=== PATIENT | female | born 1965 | race Caucasian/White ===

== ENCOUNTER 2017-10-12 09:49 | Observation (INO) | payer OTHER, SELFPAY ==
[2017-10-12] VITALS (9 sets, daily range): BP systolic 152–172; BP diastolic 81–96; PULSE 100–116; RESP 18–20; TEMP 36.6–38.6; O2SAT 93–97; BMI 25.0
--- NOTE | 2017-10-12 | FLU_PTH ---
PATIENT: CHATO NICHOLSON LOC: MS2 U#:[id number] AGE/SX: 52/F ROOM: [facility] [place]10/12/[address]: Dr. Milind Pringle DO : 1965 BED: 1 DIS: 10/13/2017 SPEC #: [id number] RECD: 10/13/17 08:48 STATUS: FELA LILO #: [id number] KOBI: 10/12/17 00:[address]: Milind Pringle DEPT: CYTOLOGY RECD BY: Jacob Ma ENTERED: 10/13/17 08:48 SP TYPE: Fluid OTHR DR: MD Dr. Sherrie Cortes MD Tissues: THORACIC FLUID Procedures: Pap Stain (control) Special Stain Group II Surgery Specimen Level IV Cell Block Cytospin Fluid HEADER OPERATION: Ultrasound-guided thoracentesis PRE-OP DIAGNOSIS: Right pleural effusion TISSUE SUBMITTED: Thoracentesis fluid for cytology DIAGNOSIS CYTOLOGY Thoracentesis fluid for cytology (cytospin and cell block): Malignant cells present derived from non-small cell carcinoma, favor adenocarcinoma. SJ:rg 10/14/17 COMMENT Immunohistochemistry ([id number]) supports the above diagnosis bur does not elucidate a definitive primary. This case was discussed with Dr. Leon Bell on 10/14/[address] Hilliard and on 10/15/[address] Sher. Case has been reviewed in consultation with who concurs with the above diagnosis. IDC:AM CYTOLOGY STUDY Slides are reviewed. CYTOLOGY GROSS Received is 100 ml of yellow cloudy fluid labeled with the patient's name and and designated per the requisition as thoracentesis. Submitted for cytology preparation including cell block. / 10/13/17 TC:0 CPT: 81877, 14102 ADDENDUM ADDENDUM ADDENDUM ADDENDUM 10/30/2017 13:41 ADDENDUM 10/30/2017 13:41 ADDENDUM 10/30/2017 13:41 ADDENDUM 10/30/2017 13:41 ADDENDUM 10/30/2017 13:41 This case was discussed with Dr. Feliz by Dr. Sher on 10/29/17. An upper gastrointestinal tract or pancreatic primary cannot be excluded.
--- NOTE | 2017-10-12 | IMM_PTH ---
PATIENT: CHATO NICHOLSON LOC: MS2 U#:[id number] AGE/SX: 52/F ROOM: [facility] RE10/12/[address]: Dr. Milind Pringle DO : 1965 BED: 1 DIS: 10/13/2017 SPEC #: [id number] RECD: 10/14/17 10:41 STATUS: FELA REBakari #: [id number] KOBI: 10/12/17 00:[address]: Milind Pringle DEPT: IMMUNOHISTOCHEMISTRY RECD BY: April Salgado ENTERED: 10/14/17 10:44 SP TYPE: IMMUNO OTHR DR: MD Dr. Sherrie Cortes MD Tissues: THORACIC FLUID Procedures: RCC (add) NAPSIN A (add) CK20 (add) CK5-6 (add) CK7 (add) CK8 (add) RODRÍGUEZ-2 (add) E-CAD (add) HEP PAR (add) HER2 ALIVIA (add) MACRO (add) MAMM (add) NJ (add) TTF1 (add) GATA3 (add) P40 (add) ER (initial) PHYSICIAN & [address] [address] SPECIMEN INFORMATION: Tissue Source: Thoracentesis fluid for cytology Clinical Info: Right pleural effusion Specimen Number: [id number] CPT code: 33951, 36747 x16 METHODOLOGY: Deparaffinized sections of prefer/formalin-fixed tissue or PAP/DQ stained slides are incubated with monoclonal/polyclonal antibodies/oligonucleotide probes. Localization is made via biotin free immunoperoxidase method. Appropriate controls are performed and reacted as expected. Results on target cell population are indicated in the following table: RESULTS: ANTIBODY / CLONE RESULT ER (6F11) negative NJ (1E2) negative Her-2neu (CB11) negative E-Cad (ECH-6) positive Mammaglobin (31A5) negative GATA3 (L50-823) negative CK7 (OV-TL12/30) positive CK8 (67klfkZ38) positive CK20 (KS20.8) negative TTF-1 (8G7G3/1) negative Napsin A (Rabbit Polyclonal) negative HepPar (OCh1E5) negative RCC (PN-15) negative Macro (HAM-56) negative CK5-6 (D5 & 1684) negative P40 (BC28) negative RODRÍGUEZ-2 (SP21) positive, dim These tests were developed and their performance characteristics determined by [facility]. They may not have been cleared or approved by the U.S. Food and Drug Administration. The FDA has determined that such clearance or approval is not necessary. INTERPRETATION: Thoracentesis fluid for cytology: Metastatic non-small cell carcinoma. AM:tanya 10/15/17 Comment: The IHC profile does not elucidate a definitive primary. ADDENDUM ADDENDUM ADDENDUM ADDENDUM 10/30/2017 13:41 ADDENDUM 10/30/2017 13:41 ADDENDUM 10/30/2017 13:41 ADDENDUM 10/30/2017 13:41 ADDENDUM 10/30/2017 13:41 This case was discussed with Dr. Feliz by Dr. Sher on 10/29/17. An upper gastrointestinal tract or pancreatic primary cannot be excluded.
--- NOTE | 2017-10-12 11:15 | US_ITS ---
PROCEDURE: ULTRASOUND GUIDED THORACENTESIS. DATE: October 12, 2017.. INDICATION: Female, 52 years old. Right pleural effusion. PHYSICIAN: Chucho Cramer M.D. PROCEDURE: The risks, benefits, and alternatives to the procedure were explained to the patient. The specific risks of bleeding, infection, and pneumothorax requiring chest tube insertion were discussed and accepted. Written informed consent was obtained. Ultrasonographic evaluation of the right lower pleural space was carried out. An adequate pocket was identified. The patient was placed in the sitting, upright position. The overlying skin was prepped and draped in sterile fashion. 1% lidocaine was administered subcutaneously for local anesthesia. Under ultrasound guidance, a 6 Macanese thoracentesis needle/catheter system was advanced into the right posterior lower pleural fluid collection. Approximately 1160 mL of roseanne-colored fluid was drained. The catheter was removed, and a sterile dressing was applied. A specimen was collected and sent to the laboratory for analysis, as requested by the referring clinician. The patient tolerated the procedure well. A chest x-ray was ordered. US/Thoracentesis W US IMPRESSION: Ultrasound-guided right thoracentesis. Electronically Signed: Chucho Cramer MD at 15:09 EST Tel [phone], Service support ,
--- NOTE | 2017-10-12 11:19 | PCM.HP.STD ---
Problem List (1) Pleural effusion Status: Acute (2) Hypertension Status: Chronic History of Present Illness Date of Admission: 10/12/17 Chief Complaint: shortness of breath. The patient is a 52 year old F who for the past month has been losing some shortness of breath. Patient said about a month ago she fell into plantar skin midsternal and also under her left breast. Subsequently, thereafter, patient has had some dyspnea on exertion. Patient states that she felt like almost like a muscle pull. Patient has been coughing but it has been nonproductive. And patient states that her breathing is worse when she lays on her right side and better when she lays on her left. Patient has difficulty lying flat as well as a cause her to be short of breath. The patient presented to [place] emergency room with these complaints. Patient had an elevated d-dimer and subsequently underwent a CT injury of the chest that did not show any pulmonary embolism but did show a large right pleural effusion. Patient is never been diagnosed with a pleural effusion before. So the feeling of the emergency room doctor that patient would be better assessed at a facility where she could have a thoracentesis. This patient was sent to [facility] per the patient request. [] Past Medical History Past Medical History (Chronic Problems): Chronic Problems Hypertension (Chronic) Allergies codeine Adverse Reaction (Verified 10/12/17 10:21) Itching Home Medications: Ambulatory Orders Medication Instructions Recorded Alprazolam [Xanax] 1 mg PO QHS PRN 10/12/17 Losartan Potassium 100 mg PO DAILY 10/12/17 Smoking Status: Current every day smoker - *Family History Paternal History Items: Unknown Maternal History Items: Cancer, Heart Disease Review of Systems Constitutional: Denies: Chills, Fever, Weight Change Eyes: Reports: - - Glasses. Denies: Blurred vision, Double vision HEENT: Denies: Head Aches, Sinus Congestion, Sinus Drainage Cardiovascular: Denies: Chest Pain, Palpitations Respiratory: Reports: Cough, Shortness of Breath, Shortness of breath upon exertion. Denies: Sputum production Gastrointestinal: Denies: Abdominal Pain, Nausea, Vomiting Genitourinary: Denies: Dysuria Musculoskeletal: Denies: Joint Pain, Joint Tenderness Skin: Denies: Rash, Wounds Neurological: Denies: Numbness, Tingling, Focal weakness Psychiatric: Denies: Anxiety, Depression, Homicidal Ideations, Suicidal Ideations Endocrine: Denies: Change in Body Habitus, Heat/ Cold Intolerance Hematologic/ Lymphatic: Denies: Easy Bruising, Easy Bleeding, Hx of blood clot VTE Information - Inpt Only VTE Present on Admission: No VTE Mechan Device Prophylaxis: SCD's Patient Problems: Active and Suspected Problems Pleural effusion (Acute) - Physical Exam General: Alert, Cooperative, No apparent distress, Well developed, Well nourished, - - No respiratory distress. No conversational dyspnea. HEENT: Atraumatic, Normocephalic Neck: No Nodes, Thyroid Normal Size and Texture Lungs: Clear to auscultation, No rhonchi, No wheeze, Diminished, - - Right lower lobe. Cardiovascular: Regular rate, Regular Rhythm, Normal S1, Normal S2, No murmurs Abdomen: Bowel Sounds Present, Soft, Non Tender, Non-Distended, No Hepato-splenomegaly Extremities: No edema, No Calf Tenderness Skin: No rashes, No breakdown Neurological: Neuro grossly intact, Sensory exam intact to light touch and pain Psych/Mental Status: Normal Affect, Appropriate Vital Signs Temp Pulse Resp BP Pulse Ox 37.6 C H 100 20 H 159/86 H 97 10/12/17 10:01 10/12/17 10:01 10/12/17 10:35 10/12/17 10:10/12/17 10:01 Oxygen Flow Rate 3 Oxygen Delivery Method Nasal Cannula Weight: 59.959 kg Body Mass Index (BMI) 25.0 CT chest personally reviewed and showed a large right lower lobe effusion. EKG reviewed and showed normal sinus rhythm Lab work from outside hospital was incomplete as not all labs are sent here. Patient did have an elevated d-dimer of 1.8. A BNP of 447. Assessment/Plan Active and Suspected Problems Pleural effusion (Acute) 1. Right-sided pleural effusion Unclear what this is. Possibilities, as was explained to the patient, could be hemothorax, transudative effusion due to heart failure, exudative effusion due to pneumonia or malignancy. Plan is for a thoracentesis with cell count and differential, cytology, culture, LDH, protein and glucose. Concomitantly patient will have a serum protein and serum LDH for comparison. 2. DVT prophylaxis: Patient be on SCDs in light of the impending thoracentesis. Code Visit Inpatient E&M: 15747 Init Hosp L3
--- NOTE | 2017-10-12 11:26 | HP.PCM_ITS ---
Problem List (1) Pleural effusion Status: Acute (2) Hypertension Status: Chronic History of Present Illness Date of Admission: 10/12/17 Chief Complaint: shortness of breath. The patient is a 52 year old F who for the past month has been losing some shortness of breath. Patient said about a month ago she fell into plantar skin midsternal and also under her left breast. Subsequently, thereafter, patient has had some dyspnea on exertion. Patient states that she felt like almost like a muscle pull. Patient has been coughing but it has been nonproductive. And patient states that her breathing is worse when she lays on her right side and better when she lays on her left. Patient has difficulty lying flat as well as a cause her to be short of breath. The patient presented to [place] emergency room with these complaints. Patient had an elevated d-dimer and subsequently underwent a CT injury of the chest that did not show any pulmonary embolism but did show a large right pleural effusion. Patient is never been diagnosed with a pleural effusion before. So the feeling of the emergency room doctor that patient would be better assessed at a facility where she could have a thoracentesis. This patient was sent to [facility] per the patient request. [] Past Medical History Past Medical History (Chronic Problems): Chronic Problems Hypertension (Chronic) Allergies codeine Adverse Reaction (Verified 10/12/17 10:21) Itching Home Medications: Ambulatory Orders Medication Instructions Recorded Alprazolam [Xanax] 1 mg PO QHS PRN 10/12/17 Losartan Potassium 100 mg PO DAILY 10/12/17 Smoking Status: Current every day smoker - *Family History Paternal History Items: Unknown Maternal History Items: Cancer, Heart Disease Review of Systems Constitutional: Denies: Chills, Fever, Weight Change Eyes: Reports: - - Glasses. Denies: Blurred vision, Double vision HEENT: Denies: Head Aches, Sinus Congestion, Sinus Drainage Cardiovascular: Denies: Chest Pain, Palpitations Respiratory: Reports: Cough, Shortness of Breath, Shortness of breath upon exertion. Denies: Sputum production Gastrointestinal: Denies: Abdominal Pain, Nausea, Vomiting Genitourinary: Denies: Dysuria Musculoskeletal: Denies: Joint Pain, Joint Tenderness Skin: Denies: Rash, Wounds Neurological: Denies: Numbness, Tingling, Focal weakness Psychiatric: Denies: Anxiety, Depression, Homicidal Ideations, Suicidal Ideations Endocrine: Denies: Change in Body Habitus, Heat/ Cold Intolerance Hematologic/ Lymphatic: Denies: Easy Bruising, Easy Bleeding, Hx of blood clot VTE Information - Inpt Only VTE Present on Admission: No VTE Mechan Device Prophylaxis: SCD's Patient Problems: Active and Suspected Problems Pleural effusion (Acute) - Physical Exam General: Alert, Cooperative, No apparent distress, Well developed, Well nourished, - - No respiratory distress. No conversational dyspnea. HEENT: Atraumatic, Normocephalic Neck: No Nodes, Thyroid Normal Size and Texture Lungs: Clear to auscultation, No rhonchi, No wheeze, Diminished, - - Right lower lobe. Cardiovascular: Regular rate, Regular Rhythm, Normal S1, Normal S2, No murmurs Abdomen: Bowel Sounds Present, Soft, Non Tender, Non-Distended, No Hepato- splenomegaly Extremities: No edema, No Calf Tenderness Skin: No rashes, No breakdown Neurological: Neuro grossly intact, Sensory exam intact to light touch and pain Psych/Mental Status: Normal Affect, Appropriate Vital Signs Temp Pulse Resp BP Pulse Ox 37.6 C H 100 20 H 159/86 H 97 10/12/17 10:01 10/12/17 10:01 10/12/17 10:35 10/12/17 10:10/12/17 10:01 Oxygen Flow Rate 3 Oxygen Delivery Method Nasal Cannula Weight: 59.959 kg Body Mass Index (BMI) 25.0 CT chest personally reviewed and showed a large right lower lobe effusion. EKG reviewed and showed normal sinus rhythm Lab work from outside hospital was incomplete as not all labs are sent here. Patient did have an elevated d-dimer of 1.8. A BNP of 447. Assessment/Plan Active and Suspected Problems Pleural effusion (Acute) 1. Right-sided pleural effusion Unclear what this is. Possibilities, as was explained to the patient, could be hemothorax, transudative effusion due to heart failure, exudative effusion due to pneumonia or malignancy. Plan is for a thoracentesis with cell count and differential, cytology, culture , LDH, protein and glucose. Concomitantly patient will have a serum protein and serum LDH for comparison. 2. DVT prophylaxis: Patient be on SCDs in light of the impending thoracentesis. Code Visit Inpatient E&M: 24669 Init Hosp L3
[2017-10-12 11:50] LABS: ALB/GLOB Ratio 0.9 RATIO (0.9-2.4); Globulin 3.6 g/dL (2.2-4.2); LDH 157 U/L (84-246); Protein, Total 6.8 g/dL (6.4-8.2)
--- NOTE | 2017-10-12 14:36 | RAD_ITS ---
STUDY: X-RAY CHEST REASON FOR EXAM: Female, 52 years old. Status post right thoracentesis. TECHNIQUE: Single PA inspiratory view of the chest. COMPARISON: None. FINDINGS: The patient is status post right thoracentesis. Minimal persistent lower parenchymal changes at the right lung base. No evidence of pneumothorax. RAD/Chest 1 View IMPRESSION: No evidence of pneumothorax on the immediate post right thoracentesis examination. Electronically Signed: Chucho Cramer MD at 14:56 EST Tel [phone], Service support ,
--- NOTE | 2017-10-12 14:37 | RAD_ITS ---
STUDY: X-RAY CHEST REASON FOR EXAM: Female, 52 years old. Status post right thoracentesis. TECHNIQUE: Single PA expiratory view of the chest. COMPARISON: None. FINDINGS: The patient is status post right thoracentesis. There is no evidence of pneumothorax. Minimal residual blunting of the right cardiac phrenic angle with underlying atelectasis. RAD/Chest 1 View IMPRESSION: Status post right thoracentesis. There is no evidence of pneumothorax. Minimal degree of pleural parenchymal changes at the right lung base. Electronically Signed: Chucho Cramer MD at 14:56 EST Tel [phone], Service support ,
[2017-10-12 15:05] LABS: Cytology, Body Fluid / CSF SEE PATHOLOGY REPORT
[2017-10-12] MEDS: oxyCODONE 5 MG Tablet PO (15:09)
[2017-10-12] MEDS: Acetaminophen 325 MG Tablet 650 MG PO ×2 (15:10→21:11)
[2017-10-12 15:31] LABS: Body Fluid Mononuclear WBC # 0.348 10^3/uL; Body Fluid Mononuclear WBC % 37.8 %; Body Fluid Polynuclear WBC # 0.572 10^3/uL; Body Fluid Polynuclear WBC % 62.2 %; Body Fluid Total Cells Counted 1.012 10^3/ul (0.000-0.000)
--- NOTE | 2017-10-12 15:36 | NURSING ---
PTS BP 172/96. PT STATES DID NOT TAKE HER ORDERED DOSE OF LOSARTAN 100MG THIS AM. STATES SHE DOES NOT TAKE MEDICATION REGULARLY. STATES WHEN SHE DOES TAKE IT, ONLY TAKES 50MG BECAUSE SHE DOES NOT LIKE HOW IT MAKES HER FEEL. DR OSCAR NOTIFIED OF SAME & DOSE CHANGED.
[2017-10-12 16:00] LABS: LDH,Body Fluid 241 Units/l (Not Establ.); Protein, Body Fluid 4.7 g/dL (Not Establ.)
--- NOTE | 2017-10-12 16:05 | CASEMGMT ---
See RN CM Assessment. DC Plan: home on discharge. Pt works, does not forsee any difficulty with f/u or having prescriptions filled. -pt is on 3L NC in hospital, no home O2. Anticipate will wean O2 prior to dc. May need Home Oxygen testing. - No dc needs identified. Daquan SAENZN RN ACM
[2017-10-12 16:56] LABS: Appearance/Body Fluid SL CLDY; Auto B Fluid Analyzer BKGD Ct COUNTS W/IN LIMITS (W/IN LIMITS); Color/Body Fluid YELLOW; Source- Body Fluid THORACENTESIS
[2017-10-12] MEDS: Losartan Potassium 50 MG Tablet PO ×2 (16:56)
[2017-10-12 17:25] LABS: Lymphocytes 16 %; Monocytes 24 %; Neutrophil (Segs) 14 %
[2017-10-12 17:26] LABS: Body Fluid QC Type(s) BF1Q
[2017-10-12 17:27] LABS: Other Cell Type/BF 46 %
[2017-10-12 23:22] LABS: Hematocrit 40.8 % (37-47); Hemoglobin 13.3 g/dl (12.0-15.0); Mean Corp Hgb Conc 32.6 g/gl (32-36); Mean Corpuscular Hgb 33.1 pg (27.0-32.0); Mean Corpuscular Volume 101.5 fL (81-99); Mean Platelet Vol. 9.5 fl (6.2-12.0); Platelet Count 167 K/mm3 (150-450); RBC Distribution Width CV 12.4 % (11.6-14.6); RBC Distribution Width SD 46.1 fl (35.1-43.9); Red Blood Count 4.02 M/mm3 (4.2-5.4); White Blood Count 5.8 K/mm3 (4.4-11.0)
[2017-10-12 23:23] LABS: Scan Indicated on CBC? Y/N NO
[2017-10-12 23:38] LABS: Anion Gap 7 (5-15); BUN 13 mg/dL (7-18); Calcium,Total 8.4 mg/dL (8.5-10.1); Chloride 104 mmol/L (98-107); Creatinine, Serum 0.72 mg/dL (0.55-1.02); EST Glomerular Filtration Rate 89 mL/min (>60); Est Glom Filt Rate - Afr Amer 108 mL/min (>60); Glucose 106 mg/dL (70-110); Potassium 3.9 mmol/L (3.5-5.1); Sodium Level 136 mmol/L (136-145)
[2017-10-13] VITALS (8 sets, daily range): BP systolic 139–154; BP diastolic 70–89; PULSE 95–105; RESP 18; TEMP 36.8–38.8; O2SAT 93–94
[2017-10-13] MEDS: oxyCODONE 5 MG Tablet PO ×2 (02:59→15:26)
[2017-10-13] MEDS: Acetaminophen 325 MG Tablet 650 MG PO ×2 (03:51→15:26)
--- NOTE | 2017-10-13 08:24 | PCM.CONS.GEN ---
Problem List (1) Pleural effusion Status: Acute Comment: right sided (2) Tobacco abuse Status: Chronic (3) Hypertension Status: Chronic Qualifiers: Hypertension type: unspecified Qualified Code(s): I10 - Essential (primary) hypertension Reason for Consult Date of Consultation: 10/13/17 Reason for Consultation: exudative pleural effusion History of Present Illness: The patient is a 52 year old F with a past medical history of hypertension, right nephrectomy, and tobacco abuse who presented to [facility] as a direct admit from [facility] with complaints of worsening stabbing pain to her right chest, progressive shortness of breath, and nonproductive cough. Patient reports she had an upper respiratory infection with sinus congestion and cough about 5 weeks ago. She attributed this to a head cold and did not seek medical treatment. She had tried taking Francine-Howe with no improvement. She also had a fall when she tripped over a rug in her house about a month ago, and has had worsening respiratory symptoms since and has been quite sore. She attributed her soreness to the fall and from coughing. Patient reports she had a large midsternal and left breast ecchymotic area following the fall, which has improved. She typically lies flat in bed on her right side when she sleeps and has been unable to do this for the past couple of days. Her dyspnea and discomfort improves with lying on her left side. Over the last 2 days, her dyspnea became significantly worse so she presented to an outside ER. Chest x-ray showed right pulmonary infiltrate. Lab work was completed and revealed an elevated d-dimer. Several various labs and blood cultures were performed, however these results are unavailable. EKGs showed sinus tachycardia with possible left atrial abnormality, rate 117 bpm. CTA of the chest was obtained and did not show a pulmonary embolism, however revealed a large right pleural effusion. The patient was given p.o. azithromycin and IV ceftriaxone, as well as IV metoprolol and Toradol injection. Patient reports she is a fairly healthy and active person. She does have a [id number] history of smoking and continues to smoke about a half pack a day. She also routinely drinks alcohol, mainly beer approximately 3 nights a week, 2-3 beers at a time. She also drinks more on the weekends. She does have a history of cannabis abuse, however quit using over 10 years ago. Patient had been receiving regular mammograms and Pap smears up until a few years ago when she moved from [place]. She has never had a colonoscopy or had a Hemoccult stool and notes that she has been resistant to having one done, even though urged by her PCP. She denies any change in bowel habits. Patient has no known lung disease and has never been on any inhalers are required a visit with a toll collector. She has never had any pulmonary function testing. Patient notes she was told she likely has sleep apnea, she does snore but denies any history of apnea. The patient has worked mainly factory jobs in shipping. She denies any history of exposure to tuberculosis, asbestos, or harmful chemicals. She denies any personal history of cancer. She denies any history of hemoptysis. She denies any recent significant weight loss. Her appetite has been good. She lives with her boyfriend. Patient was admitted to the medical surgical floor for further management. Initial lab work revealed no leukocytosis, normal hemoglobin with elevated MCV/MCH. Normal platelet count and coagulation studies. Chemistry was unremarkable. She underwent a thoracentesis on 10/12/17 with removal of approximately 1160 mL of roseanne colored fluid, which has been found to be exudative. Total body fluid cell count was elevated at 1.012. Glucose was elevated at 90. Cytology is pending. Patient has subjective improvement in her breathing and is able to take deeper breaths without pain. She still is sore in her chest when she coughs. She has not been bringing up any sputum. She denies any fevers or chills, however has had a T high of 101.4?F last evening. She is currently afebrile. The patient has been weaned off her 3 L of oxygen and is maintaining appropriate saturations on room air. She is ambulating in the room without difficulties, no dyspnea on exertion. Past Medical History Past Medical History (Chronic Problems): Chronic Problems Hypertension (Chronic) Tobacco abuse (Chronic) Allergies codeine Adverse Reaction (Verified 10/12/17 10:21) Itching Home Medications: Ambulatory Orders Medication Instructions Recorded Alprazolam [Xanax] 1 mg PO QHS PRN 10/12/17 Losartan Potassium 100 mg PO DAILY 10/12/17 Surgical History: arthroscopy, knee, - - tubal ligation, appendectomy, R nephrectomy in her 20's. Psychiatric History: No pertinent psych hx [employer] History: No pertinent [employer] history Lives: Spouse/ Significant Other Smoking Status: Current every day smoker Tobacco Use: Cigarettes, - - 16 [id number] Alcohol: Occasional - 2-3 beers 2-3 nights per week, weekends 3-6 beers/day Drugs: None - *Family History Paternal History Items: Unknown Maternal History Items: Cancer, Heart Disease Review of Systems Constitutional: Denies: Anorexia, Chills, Fever, Night Sweats, Malaise, Weakness, Weight Change, Fatigue Eyes: Denies: Vision Change HEENT: Denies: Difficulty Swallowing, Head Aches, Nasal Congestion, Post Nasal Drip, Sore Throat Cardiovascular: Reports: Orthopnea, - - sore ribs under bilat breasts when coughing. Denies: Chest Pain, Edema, Light Headedness, Palpitations, Paroxysmal Noc. Dyspnea, Syncope Respiratory: Reports: Cough - Nonproductive, Pleuritic Pain - improved. Denies: Hemoptysis, Shortness of Breath, Sputum production, Wheezing Gastrointestinal: Denies: Abdominal Pain, Diarrhea, Dyspepsia, Hematemesis, Hematochezia, Melena, Vomiting Genitourinary: Denies: Dysuria, Frequency, Retention Gynecological: Denies: Breast symptoms Musculoskeletal: Reports: - - rib pain to right lateral chest, anterior lower ribs. Denies: Back Pain Skin: Denies: Dryness, Pruritis Neurological: Denies: Balance problems, Change in Speech, Focal weakness, Numbness, Tingling, Tremor, Seizures Psychiatric: Denies: Anxiety, Depression Endocrine: Denies: Change in Body Habitus, Polydipsia, Polyuria Hematologic/ Lymphatic: Denies: Adenopathy, Anemia, Easy Bruising, Easy Bleeding, Hx of blood clot Patient Problems: Active and Suspected Problems Pleural effusion (Acute) right sided Subjective: Patient was seen and examined. She is sitting up in bed resting comfortably watching TV. - Physical Exam General: Alert, Oriented x3, Cooperative, No apparent distress, Well developed, Well nourished, - - No conversational dyspnea HEENT: Atraumatic, Normocephalic Oral: Moist Mucosa Neck: Supple, No JVD, Negative Carotid Bruits, No Nodes, Trachea Midline, Thyroid Normal Size and Texture Lungs: Clear to auscultation, - - Diminished posteriorly mid to lower lobes, more on the right. No appreciable rhonchi, wheezes, or rales. Cardiovascular: Regular Rhythm, Normal S1, Normal S2, No murmurs, No rub noted, No Gallop, Tachycardic Abdomen: Bowel Sounds Present, Soft, Non Tender, Non-Distended, No Hepato-splenomegaly Extremities: No clubbing, No cyanosis, No edema, Capillary Refill Less than 3 Seconds, No Calf Tenderness Skin: No rashes, No breakdown Musculoskeletal: No Tenderness to Palpation of Joints or Extremities, No Muscle Wasting Lymphatic: No Cervical, Supraclavicular, or Inguinal Adenopathy Neurological: Cranial nerves II-XII grossly intact, Neuro grossly intact, Motor Exam 5/5 strength throughout Psych/Mental Status: Alert and oriented to time, place, person, mood and affect Vital Signs Temp Pulse Resp BP Pulse Ox 98.2 F 95 18 139/77 H 94 10/13/17 07:50 10/13/17 07:50 10/13/17 07:50 10/13/17 07:50 10/13/17 07:50 Oxygen Flow Rate 1 Oxygen Delivery Method Room Air Weight: 132 lb 3 oz Body Mass Index (BMI) 25.0 Intake and Output for Last 24 Hours 10/11/17 10/12/17 10/13/17 23:59 23:59 23:59 Intake Total 480 / 480 400 / 400 Balance 480 / 480 400 / 400 Microbiology Past 72 Hours 10/12/17 14:30 Gram Stain - Preliminary Fluid - Thoracentesis Fluid Laboratory Tests Past 24 Hrs 10/12/17 10/12/17 10/12/17 11:28 11:28 14:30 WBC RBC Hgb Hct MCV MCH MCHC RDW RDW Differential Plt Count MPV PT 13.0 INR 1.0 Sodium Potassium Chloride Carbon Dioxide Anion Gap BUN Creatinine Estim Creat Clear Calc Est GFR (MDRD) Af Amer Est GFR (MDRD) Non-Af BUN/Creatinine Ratio Glucose Calcium Lactate Dehydrogenase 157 Total Protein 6.8 Globulin 3.6 Albumin/Globulin Ratio 0.9 Fluid Source THORACENTESIS Fluid Color YELLOW Fluid Appearance SL CLDY Fluid WBC 0.920 Fluid RBC 0.02555 Fluid Tot Cell Count 1.012 H Fld Polynuclear WBCs # 0.572 Fld Polynuclear WBCs % 62.2 Fluid Mononuclear WBCs 0.348 Fld Mononuclear WBCs % 37.8 Fluid Neutrophils 14 Fluid Lymphocytes 16 Fluid Monocytes 24 Fluid Other Cells 46 Fl Pathologist Comment May follow Fluid Glucose Fluid Total Protein Fluid LDH Fluid Comment 2 SEE COMMENT Miscellaneous Cytology 10/12/17 10/12/17 10/12/17 14:30 14:55 23:09 WBC 5.8 RBC 4.02 L Hgb 13.3 Hct 40.8 MCV 101.5 H MCH 33.1 H MCHC 32.6 RDW 12.4 RDW Differential 46.1 H Plt Count 167 MPV 9.5 PT INR Sodium Potassium Chloride Carbon Dioxide Anion Gap BUN Creatinine Estim Creat Clear Calc Est GFR (MDRD) Af Amer Est GFR (MDRD) Non-Af BUN/Creatinine Ratio Glucose Calcium Lactate Dehydrogenase Total Protein Globulin Albumin/Globulin Ratio Fluid Source Fluid Color Fluid Appearance Fluid WBC Fluid RBC Fluid Tot Cell Count Fld Polynuclear WBCs # Fld Polynuclear WBCs % Fluid Mononuclear WBCs Fld Mononuclear WBCs % Fluid Neutrophils Fluid Lymphocytes Fluid Monocytes Fluid Other Cells Fl Pathologist Comment Fluid Glucose 90 H Fluid Total Protein 4.7 Fluid LDH 241 Fluid Comment 2 Miscellaneous Cytology Pending 10/12/17 23:09 WBC RBC Hgb Hct MCV MCH MCHC RDW RDW Differential Plt Count MPV PT INR Sodium 136 Potassium 3.9 Chloride 104 Carbon Dioxide 25.0 Anion Gap 7 BUN 13 Creatinine 0.72 Estim Creat Clear Calc 67.40 Est GFR (MDRD) Af Amer 108 Est GFR (MDRD) Non-Af 89 BUN/Creatinine Ratio 18.0 Glucose 106 Calcium 8.4 L Lactate Dehydrogenase Total Protein Globulin Albumin/Globulin Ratio Fluid Source Fluid Color Fluid Appearance Fluid WBC Fluid RBC Fluid Tot Cell Count Fld Polynuclear WBCs # Fld Polynuclear WBCs % Fluid Mononuclear WBCs Fld Mononuclear WBCs % Fluid Neutrophils Fluid Lymphocytes Fluid Monocytes Fluid Other Cells Fl Pathologist Comment Fluid Glucose Fluid Total Protein Fluid LDH Fluid Comment 2 Miscellaneous Cytology Assessment/Plan Active and Suspected Problems Pleural effusion (Acute) right sided RECOMMENDATIONS 1. Wean oxygen supplementation to keep saturations greater than 90%. 2. Encourage incentive spirometer 3. Increase activity as tolerated 4. Await final fluid analysis from thoracentesis 5. Obtain sputum culture if cough becomes productive 6. Walking oximetry prior to discharge 7. Depending upon cytology, patient can follow up in the pulmonary clinic on discharge from hospital IMPRESSIONS 1. Large right pleural effusion Patient had a mechanical fall approximately 1 month ago with subsequent progressive shortness of breath and cough. Patient originally presented to [facility] and subsequently had a CT of the chest secondary to elevated d-dimer. Results were no evidence of PE but found a large right sided pleural effusion and compressive atelectasis in the right lung base. There was no significant mediastinal lymphadenopathy. She has no history of congestive heart failure or CAD. She has no history of cancer but has been a smoker for the past 35 years. Thoracentesis removed approximately 1100 mL of roseanne colored, exudative fluid on 10/12. Cytology is pending. Chest x-ray s/p thoracentesis showed minimal persistent lower parenchymal changes at the right lung base, no evidence of pneumothorax. Given her smoking history, fluid would be concerning for malignancy but will await pathology. If no results by this afternoon, will call the lab to determine etiology of extra cells (eosinophils vs malignancy). She did have a fever on arrival and T high of 101.4?F last evening. Patient did not present with a leukocytosis, however does note several weeks of chest congestion following URI, so a post-viral pneumonia is possible etiology. Can get sputum culture if cough becomes productive. Patient does not endorse any wheezing, aerosols not likely indicated at this time. Oxygen supplementation as needed to keep saturations greater than 90%. Encourage incentive spirometer and increase activity as tolerated. Patient can follow-up in the pulmonary clinic if indicated. 2. Tobacco abuse The patient currently only smokes about half pack a day. She has not had a cigarette in 4 days and does not feel she needs a nicotine patch. She is hopeful on smoking cessation as an outpatient as well, her daughter is going to assist her with this. May offer nicotine patch if she desires in the future. Encouraged smoking cessation and reviewed benefits, she verbalized understanding. 3. History of hypertension/insomnia/occasional anxiety Complicates care, management, recovery, and prognosis. Stable. Continue home medications. Thank you for the opportunity to participate in this patient's care, please do not hesitate to contact us with any further questions or concerns. This note was generated with [employer] software. It may contain incorrect words, spelling, and punctuation that were not noted in checking the note before signing.
--- NOTE | 2017-10-13 08:27 | CON.PCM_ITS ---
Problem List (1) Pleural effusion Status: Acute Comment: right sided (2) Tobacco abuse Status: Chronic (3) Hypertension Status: Chronic Qualifiers: Hypertension type: unspecified Qualified Code(s): I10 - Essential (primary ) hypertension Reason for Consult Date of Consultation: 10/13/17 Reason for Consultation: exudative pleural effusion History of Present Illness: The patient is a 52 year old F with a past medical history of hypertension, right nephrectomy, and tobacco abuse who presented to [facility] as a direct admit from [facility] with complaints of worsening stabbing pain to her right chest, progressive shortness of breath, and nonproductive cough. Patient reports she had an upper respiratory infection with sinus congestion and cough about 5 weeks ago. She attributed this to a head cold and did not seek medical treatment. She had tried taking Francine-Tobyhanna with no improvement. She also had a fall when she tripped over a rug in her house about a month ago , and has had worsening respiratory symptoms since and has been quite sore. She attributed her soreness to the fall and from coughing. Patient reports she had a large midsternal and left breast ecchymotic area following the fall, which has improved. She typically lies flat in bed on her right side when she sleeps and has been unable to do this for the past couple of days. Her dyspnea and discomfort improves with lying on her left side. Over the last 2 days, her dyspnea became significantly worse so she presented to an outside ER. Chest x- ray showed right pulmonary infiltrate. Lab work was completed and revealed an elevated d-dimer. Several various labs and blood cultures were performed, however these results are unavailable. EKGs showed sinus tachycardia with possible left atrial abnormality, rate 117 bpm. CTA of the chest was obtained and did not show a pulmonary embolism, however revealed a large right pleural effusion. The patient was given p.o. azithromycin and IV ceftriaxone, as well as IV metoprolol and Toradol injection. Patient reports she is a fairly healthy and active person. She does have a 18- pack-year history of smoking and continues to smoke about a half pack a day. She also routinely drinks alcohol, mainly beer approximately 3 nights a week, 2- 3 beers at a time. She also drinks more on the weekends. She does have a history of cannabis abuse, however quit using over 10 years ago. Patient had been receiving regular mammograms and Pap smears up until a few years ago when she moved from [place]. She has never had a colonoscopy or had a Hemoccult stool and notes that she has been resistant to having one done, even though urged by her PCP. She denies any change in bowel habits. Patient has no known lung disease and has never been on any inhalers are required a visit with a mapping technician. She has never had any pulmonary function testing. Patient notes she was told she likely has sleep apnea, she does snore but denies any history of apnea. The patient has worked mainly factory jobs in shipping. She denies any history of exposure to tuberculosis, asbestos, or harmful chemicals. She denies any personal history of cancer. She denies any history of hemoptysis. She denies any recent significant weight loss. Her appetite has been good. She lives with her boyfriend. Patient was admitted to the medical surgical floor for further management. Initial lab work revealed no leukocytosis, normal hemoglobin with elevated MCV/ MCH. Normal platelet count and coagulation studies. Chemistry was unremarkable. She underwent a thoracentesis on 10/12/17 with removal of approximately 1160 mL of roseanne colored fluid, which has been found to be exudative. Total body fluid cell count was elevated at 1.012. Glucose was elevated at 90. Cytology is pending. Patient has subjective improvement in her breathing and is able to take deeper breaths without pain. She still is sore in her chest when she coughs. She has not been bringing up any sputum. She denies any fevers or chills, however has had a T high of 101.4?F last evening. She is currently afebrile. The patient has been weaned off her 3 L of oxygen and is maintaining appropriate saturations on room air. She is ambulating in the room without difficulties, no dyspnea on exertion. Past Medical History Past Medical History (Chronic Problems): Chronic Problems Hypertension (Chronic) Tobacco abuse (Chronic) Allergies codeine Adverse Reaction (Verified 10/12/17 10:21) Itching Home Medications: Ambulatory Orders Medication Instructions Recorded Alprazolam [Xanax] 1 mg PO QHS PRN 10/12/17 Losartan Potassium 100 mg PO DAILY 10/12/17 Surgical History: arthroscopy, knee, - - tubal ligation, appendectomy, R nephrectomy in her 20's. Psychiatric History: No pertinent psych hx LEAD PRESSER History: No pertinent LEAD PRESSER history Lives: Spouse/ Significant Other Smoking Status: Current every day smoker Tobacco Use: Cigarettes, - - 16 [id number] Alcohol: Occasional - 2-3 beers 2-3 nights per week, weekends 3-6 beers/day Drugs: None - *Family History Paternal History Items: Unknown Maternal History Items: Cancer, Heart Disease Review of Systems Constitutional: Denies: Anorexia, Chills, Fever, Night Sweats, Malaise, Weakness , Weight Change, Fatigue Eyes: Denies: Vision Change HEENT: Denies: Difficulty Swallowing, Head Aches, Nasal Congestion, Post Nasal Drip, Sore Throat Cardiovascular: Reports: Orthopnea, - - sore ribs under bilat breasts when coughing. Denies: Chest Pain, Edema, Light Headedness, Palpitations, Paroxysmal Noc. Dyspnea, Syncope Respiratory: Reports: Cough - Nonproductive, Pleuritic Pain - improved. Denies : Hemoptysis, Shortness of Breath, Sputum production, Wheezing Gastrointestinal: Denies: Abdominal Pain, Diarrhea, Dyspepsia, Hematemesis, Hematochezia, Melena, Vomiting Genitourinary: Denies: Dysuria, Frequency, Retention Gynecological: Denies: Breast symptoms Musculoskeletal: Reports: - - rib pain to right lateral chest, anterior lower ribs. Denies: Back Pain Skin: Denies: Dryness, Pruritis Neurological: Denies: Balance problems, Change in Speech, Focal weakness, Numbness, Tingling, Tremor, Seizures Psychiatric: Denies: Anxiety, Depression Endocrine: Denies: Change in Body Habitus, Polydipsia, Polyuria Hematologic/ Lymphatic: Denies: Adenopathy, Anemia, Easy Bruising, Easy Bleeding , Hx of blood clot Patient Problems: Active and Suspected Problems Pleural effusion (Acute) right sided Subjective: Patient was seen and examined. She is sitting up in bed resting comfortably watching TV. - Physical Exam General: Alert, Oriented x3, Cooperative, No apparent distress, Well developed, Well nourished, - - No conversational dyspnea HEENT: Atraumatic, Normocephalic Oral: Moist Mucosa Neck: Supple, No JVD, Negative Carotid Bruits, No Nodes, Trachea Midline, Thyroid Normal Size and Texture Lungs: Clear to auscultation, - - Diminished posteriorly mid to lower lobes, more on the right. No appreciable rhonchi, wheezes, or rales. Cardiovascular: Regular Rhythm, Normal S1, Normal S2, No murmurs, No rub noted, No Gallop, Tachycardic Abdomen: Bowel Sounds Present, Soft, Non Tender, Non-Distended, No Hepato- splenomegaly Extremities: No clubbing, No cyanosis, No edema, Capillary Refill Less than 3 Seconds, No Calf Tenderness Skin: No rashes, No breakdown Musculoskeletal: No Tenderness to Palpation of Joints or Extremities, No Muscle Wasting Lymphatic: No Cervical, Supraclavicular, or Inguinal Adenopathy Neurological: Cranial nerves II-XII grossly intact, Neuro grossly intact, Motor Exam 5/5 strength throughout Psych/Mental Status: Alert and oriented to time, place, person, mood and affect Vital Signs Temp Pulse Resp BP Pulse Ox 98.2 F 95 18 139/77 H 94 10/13/17 07:50 10/13/17 07:50 10/13/17 07:50 10/13/17 07:50 10/13/17 07:50 Oxygen Flow Rate 1 Oxygen Delivery Method Room Air Weight: 132 lb 3 oz Body Mass Index (BMI) 25.0 Intake and Output for Last 24 Hours 10/11/17 10/12/17 10/13/17 23:59 23:59 23:59 Intake Total 480 / 480 400 / 400 Balance 480 / 480 400 / 400 Microbiology Past 72 Hours 10/12/17 14:30 Gram Stain - Preliminary Fluid - Thoracentesis Fluid Laboratory Tests Past 24 Hrs 10/12/17 10/12/17 10/12/17 11:28 11:28 14:30 WBC RBC Hgb Hct MCV MCH MCHC RDW RDW Differential Plt Count MPV PT 13.0 INR 1.0 Sodium Potassium Chloride Carbon Dioxide Anion Gap BUN Creatinine Estim Creat Clear Calc Est GFR (MDRD) Af Amer Est GFR (MDRD) Non-Af BUN/Creatinine Ratio Glucose Calcium Lactate Dehydrogenase 157 Total Protein 6.8 Globulin 3.6 Albumin/Globulin Ratio 0.9 Fluid Source THORACENTESIS Fluid Color YELLOW Fluid Appearance SL CLDY Fluid WBC 0.920 Fluid RBC 0.82395 Fluid Tot Cell Count 1.012 H Fld Polynuclear WBCs # 0.572 Fld Polynuclear WBCs % 62.2 Fluid Mononuclear WBCs 0.348 Fld Mononuclear WBCs % 37.8 Fluid Neutrophils 14 Fluid Lymphocytes 16 Fluid Monocytes 24 Fluid Other Cells 46 Fl Pathologist Comment May follow Fluid Glucose Fluid Total Protein Fluid LDH Fluid Comment 2 SEE COMMENT Miscellaneous Cytology 10/12/17 10/12/17 10/12/17 14:30 14:55 23:09 WBC 5.8 RBC 4.02 L Hgb 13.3 Hct 40.8 MCV 101.5 H MCH 33.1 H MCHC 32.6 RDW 12.4 RDW Differential 46.1 H Plt Count 167 MPV 9.5 PT INR Sodium Potassium Chloride Carbon Dioxide Anion Gap BUN Creatinine Estim Creat Clear Calc Est GFR (MDRD) Af Amer Est GFR (MDRD) Non-Af BUN/Creatinine Ratio Glucose Calcium Lactate Dehydrogenase Total Protein Globulin Albumin/Globulin Ratio Fluid Source Fluid Color Fluid Appearance Fluid WBC Fluid RBC Fluid Tot Cell Count Fld Polynuclear WBCs # Fld Polynuclear WBCs % Fluid Mononuclear WBCs Fld Mononuclear WBCs % Fluid Neutrophils Fluid Lymphocytes Fluid Monocytes Fluid Other Cells Fl Pathologist Comment Fluid Glucose 90 H Fluid Total Protein 4.7 Fluid LDH 241 Fluid Comment 2 Miscellaneous Cytology Pending 10/12/17 23:09 WBC RBC Hgb Hct MCV MCH MCHC RDW RDW Differential Plt Count MPV PT INR Sodium 136 Potassium 3.9 Chloride 104 Carbon Dioxide 25.0 Anion Gap 7 BUN 13 Creatinine 0.72 Estim Creat Clear Calc 67.40 Est GFR (MDRD) Af Amer 108 Est GFR (MDRD) Non-Af 89 BUN/Creatinine Ratio 18.0 Glucose 106 Calcium 8.4 L Lactate Dehydrogenase Total Protein Globulin Albumin/Globulin Ratio Fluid Source Fluid Color Fluid Appearance Fluid WBC Fluid RBC Fluid Tot Cell Count Fld Polynuclear WBCs # Fld Polynuclear WBCs % Fluid Mononuclear WBCs Fld Mononuclear WBCs % Fluid Neutrophils Fluid Lymphocytes Fluid Monocytes Fluid Other Cells Fl Pathologist Comment Fluid Glucose Fluid Total Protein Fluid LDH Fluid Comment 2 Miscellaneous Cytology Assessment/Plan Active and Suspected Problems Pleural effusion (Acute) right sided RECOMMENDATIONS 1. Wean oxygen supplementation to keep saturations greater than 90%. 2. Encourage incentive spirometer 3. Increase activity as tolerated 4. Await final fluid analysis from thoracentesis 5. Obtain sputum culture if cough becomes productive 6. Walking oximetry prior to discharge 7. Depending upon cytology, patient can follow up in the pulmonary clinic on discharge from hospital IMPRESSIONS 1. Large right pleural effusion Patient had a mechanical fall approximately 1 month ago with subsequent progressive shortness of breath and cough. Patient originally presented to [facility] and subsequently had a CT of the chest secondary to elevated d-dimer. Results were no evidence of PE but found a large right sided pleural effusion and compressive atelectasis in the right lung base. There was no significant mediastinal lymphadenopathy. She has no history of congestive heart failure or CAD. She has no history of cancer but has been a smoker for the past 35 years. Thoracentesis removed approximately 1100 mL of roseanne colored , exudative fluid on 10/12. Cytology is pending. Chest x-ray s/p thoracentesis showed minimal persistent lower parenchymal changes at the right lung base, no evidence of pneumothorax. Given her smoking history, fluid would be concerning for malignancy but will await pathology. If no results by this afternoon, will call the lab to determine etiology of extra cells (eosinophils vs malignancy). She did have a fever on arrival and T high of 101.4?F last evening. Patient did not present with a leukocytosis, however does note several weeks of chest congestion following URI, so a post-viral pneumonia is possible etiology. Can get sputum culture if cough becomes productive. Patient does not endorse any wheezing, aerosols not likely indicated at this time. Oxygen supplementation as needed to keep saturations greater than 90%. Encourage incentive spirometer and increase activity as tolerated. Patient can follow-up in the pulmonary clinic if indicated. 2. Tobacco abuse The patient currently only smokes about half pack a day. She has not had a cigarette in 4 days and does not feel she needs a nicotine patch. She is hopeful on smoking cessation as an outpatient as well, her daughter is going to assist her with this. May offer nicotine patch if she desires in the future. Encouraged smoking cessation and reviewed benefits, she verbalized understanding. 3. History of hypertension/insomnia/occasional anxiety Complicates care, management, recovery, and prognosis. Stable. Continue home medications. Thank you for the opportunity to participate in this patient's care, please do not hesitate to contact us with any further questions or concerns. This note was generated with Wimduation software. It may contain incorrect words, spelling, and punctuation that were not noted in checking the note before signing.
--- NOTE | 2017-10-13 10:20 | PN_ITS ---
Patient Problems: Active and Suspected Problems Pleural effusion (Acute) Subjective: At some fevers yesterday and overnight. States that her pain in her chest is actually better after the thoracentesis. No shortness of breath. Vitals/I&O's: Vital Signs Temp Pulse Resp BP Pulse Ox 36.8 C 95 18 139/77 H 94 10/13/17 07:50 10/13/17 07:50 10/13/17 07:50 10/13/17 07:50 10/13/17 09:01 Oxygen Flow Rate 1 Oxygen Delivery Method Room Air Weight: 59.959 kg Body Mass Index (BMI) 25.0 Intake and Output for Last 24 Hours 10/11/17 10/12/17 10/13/17 23:59 23:59 23:59 Intake Total 480 / 480 400 / 400 Balance 480 / 480 400 / 400 General: Alert, Cooperative, No apparent distress HEENT: Atraumatic, Normocephalic Neck: No Nodes, Thyroid Normal Size and Texture Lungs: Clear to auscultation, Normal air movement, No rhonchi, No wheeze, - - Improved aeration in the right lower lobe. Cardiovascular: Regular rate, Regular Rhythm, Normal S1, Normal S2, No murmurs Abdomen: Bowel Sounds Present, Soft, Non Tender, Non-Distended, No Hepato- splenomegaly Extremities: No edema, No Calf Tenderness Psych/Mental Status: Normal Affect, Appropriate Microbiology Past 72 Hours 10/12/17 14:30 Fluid - Thoracentesis Fluid Gram Stain - Preliminary Laboratory Results 10/12/17 11:28: Lactate Dehydrogenase 157, Total Protein 6.8, Globulin 3.6, Albumin/Globulin Ratio 0.9 10/12/17 11:28: PT 13.0, INR 1.0 10/12/17 14:30: Fluid Source THORACENTESIS, Fluid Color YELLOW, Fluid Appearance SL CLDY, Fluid WBC 0.920, Fluid RBC 0.29663, Fluid Tot Cell Count 1.012 H, Fld Polynuclear WBCs # 0.572, Fld Polynuclear WBCs % 62.2, Fluid Mononuclear WBCs 0.348, Fld Mononuclear WBCs % 37.8, Fluid Neutrophils 14, Fluid Lymphocytes 16, Fluid Monocytes 24, Fluid Other Cells 46, Fl Pathologist Comment May follow, Fluid Comment 2 SEE COMMENT 10/12/17 14:30: Miscellaneous Cytology Pending 10/12/17 14:55: Fluid Glucose 90 H, Fluid Total Protein 4.7, Fluid LDH 241 10/12/17 23:09: WBC 5.8, RBC 4.02 L, Hgb 13.3, Hct 40.8, MCV 101.5 H, MCH 33.1 H , MCHC 32.6, RDW 12.4, RDW Differential 46.1 H, Plt Count 167, MPV 9.5 10/12/17 23:09: Sodium 136, Potassium 3.9, Chloride 104, Carbon Dioxide 25.0, Anion Gap 7, BUN 13, Creatinine 0.72, Estim Creat Clear Calc 67.40, Est GFR ( MDRD) Af Amer 108, Est GFR (MDRD) Non-Af 89, BUN/Creatinine Ratio 18.0, Glucose 106, Calcium 8.4 L Current Medications Acetaminophen (Tylenol) 650 mg PO Q6H PRN PRN PRN Reason: Mild Pain (1-3)/Temp > 100.7 F Last Admin: 10/13/17 03:51 Dose: 650 mg Alprazolam (Xanax) 1 mg PO QHS PRN PRN PRN Reason: RESTLESSNESS Bisacodyl (Dulcolax) 5 mg PO DAILY PRN PRN PRN Reason: Constipation Losartan Potassium (Cozaar) 50 mg PO DAILY RAJENDRA Last Admin: 10/12/17 16:56 Dose: 50 mg Magnesium Hydroxide (Milk Of Magnesia) 30 ml PO DAILY PRN PRN PRN Reason: Constipation Ondansetron HCl (Zofran) 4 mg IV Q8H PRN PRN PRN Reason: NAUSEA Oxycodone HCl (Oxyir) 5 - 10 mg PO Q4H PRN PRN PRN Reason: MOD-SEVERE PAIN (4-10/10) Last Admin: 10/13/17 02:59 Dose: 10 mg Sodium Chloride () 5 - 30 ml IV UD PRN PRN Reason: SALINE FLUSH Assessment/Plan Active and Suspected Problems Pleural effusion (Acute) 1. Right-sided pleural effusion exudative Discussed with pulmonology. He will evaluate today. Follow-up cytology which some preliminary information may be available today. 2. Fever Maybe related to effusion versus atelectasis. We will check a urinalysis and urine culture. Patient is otherwise not septic. 3. DVT prophylaxis: Patient be on SCDs in light of the impending thoracentesis.
[2017-10-13 12:19] LABS: Bacteria 0 SEEN /hpf (None Seen); Mucous, Urine 0 SEEN /hpf (<or=2+); Squamous Epithelial Cells - UA 0 SEEN /hpf (5-10); White Blood Cells 0 SEEN /hpf (0-5)
[2017-10-13 12:40] LABS: Color, Urine Yellow (Yellow); Glucose, Dipstick Normal (Normal); Ketone-Dipstick Negative (Negative); Leukocyte Esterase-Dipstick 25 /ul (Negative); Nitrite-Dipstick Negative (Negative); Occult Blood-Urine 250 /ul (Negative); Protein-Dipstick Negative (Negative); Urine Bilirubin Dipstick Negative (Negative); Urine Clarity Clear (Clear); Urine Urobilinogen Normal (Normal)
[2017-10-13 12:46] LABS: Red Blood Cells-Urine 0-5 SEEN /hpf (0-5)
--- NOTE | 2017-10-13 15:07 | DCINST_ITS ---
- Discharge Diagnoses Current Active Problems: Current Active and Chronic Problems Pleural effusion (Acute) right sided Hypertension (Chronic) Tobacco abuse (Chronic) You will use the following diet at home:: No restrictions Your food should be the consistency of: Regular Discharge Activity: Return to Normal Activity Call your doctor if you observe: Fever of 101 or Higher, Shortness of breath Allergies/Adverse Reactions: Allergies codeine Adverse Reaction (Verified 10/12/17 10:21) Itching Medications to take at Discharge Alprazolam [Xanax] 1 mg PO QHS PRN 10/12/17 Losartan Potassium 100 mg PO DAILY 10/12/17 Acetaminophen [Tylenol Tablet] 500 mg PO Q4H PRN tablet 10/13/17 Hydrocodone/Acetaminophen [Hydrocodon-Acetaminophen 5-325] 1 each PO Q6H PRN # 12 tablet 10/13/17 The following prescriptions were given: Hydrocodone/Acetaminophen [Hydrocodon-Acetaminophen 5-325] 1 each PO Q6H PRN # 12 tablet PRN Reason: Pain Orders to be completed after discharge: Chest PA and Lateral [RAD] Time Frame: 4 Weeks, Location: None Selected Primary Care Physician: Sherrie Jacob [Primary Care Provider] - Within 2 Weeks Please Follow Up With: Leon Bell MD - plerual effusion follow up. When: 4 weeks Proposed Discharge Date: 10/13/17
--- NOTE | 2017-10-13 15:07 | PCM.DC.SUM ---
Discharge Date and Diagnosis - Problem List Patient Problems: Active and Suspected Problems Pleural effusion (Acute) right sided Date of Admission: 10/12/17 Date of Discharge: 10/13/17 - Primary Discharge Diagnosis Active and Suspected Problems Pleural effusion (Acute) right sided - Secondary Discharge Diagnosis Chronic Problems Hypertension (Chronic) Tobacco abuse (Chronic) Hospital Course and Treatment Imaging Results: Clinical Impression(s) from Imaging Studies Thoracentesis Ultrasound 10/12/17 11:15 IMPRESSION: Ultrasound-guided right thoracentesis. Electronically Signed: Chucho Cramer MD at 15:09 EST Tel [phone], Service support , Chest X-Ray 10/12/17 14:36 IMPRESSION: No evidence of pneumothorax on the immediate post right thoracentesis examination. Electronically Signed: Chucho Cramer MD at 14:56 EST Tel [phone], Service support , Chest X-Ray 10/12/17 14:37 IMPRESSION: Status post right thoracentesis. There is no evidence of pneumothorax. Minimal degree of pleural parenchymal changes at the right lung base. Electronically Signed: Chucho Cramer MD at 14:56 EST Tel [phone], Service support , Leon Bell MD. Operations: None Procedures: None Summary of Care Provided: The patient is a 52 year old F presents with shortness of breath. Patient presented to an outside emergency room and I was noted to have a right-sided pleural effusion. Patient was transferred to [place] where patient underwent a ultrasound-guided thoracentesis on . Pulmonary studies showed an exudative effusion and without pulmonology was consulted. Patient was breathing better after the thoracentesis. And pulmonology reviewed as some of the preliminary pathology and showed some eosinophils so the felt this may been a traumatic hemothorax. Patient did endorse that she had a incident where she hit her mid chest on the plant [place]. So but further studies are pending at this time. Patient has been ambulated and her oxygenation is 94%. Patient will follow up with the manager drug safety and preceding that, will have a chest x-ray to see if the pleural effusion has resolved. But is felt that the patient may have had a fractured 2 ribs that led to the hemothorax. But still waiting on final pathology results to confirm that. [] Discharge Activity: Return to Normal Activity Call your doctor if you observe: Fever of 101 or Higher, Shortness of breath Home Medications: Medications to take at Discharge Alprazolam [Xanax] 1 mg PO QHS PRN 10/12/17 Losartan Potassium 100 mg PO DAILY 10/12/17 Acetaminophen [Tylenol Tablet] 500 mg PO Q4H PRN tablet 10/13/17 Hydrocodone/Acetaminophen [Hydrocodon-Acetaminophen 5-325] 1 each PO Q6H PRN #12 tablet 10/13/17 Following Prescrptions Were Given to Patient: Hydrocodone/Acetaminophen [Hydrocodon-Acetaminophen 5-325] 1 each PO Q6H PRN #12 tablet PRN Reason: Pain Other Amb Orders: Chest PA and Lateral [RAD] Time Frame: 4 Weeks, Location: None Selected Primary Care Physician: Sherrie Jacob [Primary Care Provider] - Within 2 Weeks Please Follow Up With: Leon Bell MD - plerual effusion follow up. When: 4 weeks Disposition: Home Minutes spent on discharge:: 32 Patient Condition:: Good Meaningful Use Info Meaningful Use Diagnoses (Choose all that apply): None applicable Code Visit OBSV E&M: 77375 Observation care discharge
--- NOTE | 2017-10-13 15:11 | DS.PCM_ITS ---
Discharge Date and Diagnosis - Problem List Patient Problems: Active and Suspected Problems Pleural effusion (Acute) right sided Date of Admission: 10/12/17 Date of Discharge: 10/13/17 - Primary Discharge Diagnosis Active and Suspected Problems Pleural effusion (Acute) right sided - Secondary Discharge Diagnosis Chronic Problems Hypertension (Chronic) Tobacco abuse (Chronic) Hospital Course and Treatment Imaging Results: Clinical Impression(s) from Imaging Studies Thoracentesis Ultrasound 10/12/17 11:15 IMPRESSION: Ultrasound-guided right thoracentesis. Electronically Signed: Chucho Cramer MD at 15:09 EST Tel [phone], Service support , Chest X-Ray 10/12/17 14:36 IMPRESSION: No evidence of pneumothorax on the immediate post right thoracentesis examination. Electronically Signed: Chucho Cramer MD at 14:56 EST Tel [phone], Service support , Chest X-Ray 10/12/17 14:37 IMPRESSION: Status post right thoracentesis. There is no evidence of pneumothorax. Minimal degree of pleural parenchymal changes at the right lung base. Electronically Signed: Chucho Cramer MD at 14:56 EST Tel [phone], Service support , Leon Bell MD. Operations: None Procedures: None Summary of Care Provided: The patient is a 52 year old F presents with shortness of breath. Patient presented to an outside emergency room and I was noted to have a right-sided pleural effusion. Patient was transferred to [place] where patient underwent a ultrasound-guided thoracentesis on . Pulmonary studies showed an exudative effusion and without pulmonology was consulted. Patient was breathing better after the thoracentesis. And pulmonology reviewed as some of the preliminary pathology and showed some eosinophils so the felt this may been a traumatic hemothorax. Patient did endorse that she had a incident where she hit her mid chest on the plant [place]. So but further studies are pending at this time. Patient has been ambulated and her oxygenation is 94%. Patient will follow up with the application support lead and preceding that, will have a chest x- ray to see if the pleural effusion has resolved. But is felt that the patient may have had a fractured 2 ribs that led to the hemothorax. But still waiting on final pathology results to confirm that. [] Discharge Activity: Return to Normal Activity Call your doctor if you observe: Fever of 101 or Higher, Shortness of breath Home Medications: Medications to take at Discharge Alprazolam [Xanax] 1 mg PO QHS PRN 10/12/17 Losartan Potassium 100 mg PO DAILY 10/12/17 Acetaminophen [Tylenol Tablet] 500 mg PO Q4H PRN tablet 10/13/17 Hydrocodone/Acetaminophen [Hydrocodon-Acetaminophen 5-325] 1 each PO Q6H PRN # 12 tablet 10/13/17 Following Prescrptions Were Given to Patient: Hydrocodone/Acetaminophen [Hydrocodon-Acetaminophen 5-325] 1 each PO Q6H PRN # 12 tablet PRN Reason: Pain Other Amb Orders: Chest PA and Lateral [RAD] Time Frame: 4 Weeks, Location: None Selected Primary Care Physician: Sherrie Jacob [Primary Care Provider] - Within 2 Weeks Please Follow Up With: Leon Bell MD - plerual effusion follow up. When: 4 weeks Disposition: Home Minutes spent on discharge:: 32 Patient Condition:: Good Meaningful Use Info Meaningful Use Diagnoses (Choose all that apply): None applicable Code Visit OBSV E&M: 82090 Observation care discharge
--- NOTE | 2017-10-13 15:25 | PCM.WORK.EX ---
Work/School Excuse Work/School Excuse for:: Patient Please excuse this person from:: Work From: 10/12/17 through: 10/15/17
[2017-10-14 15:30] LABS: Pathologist Comment/Body Fluid Reviewed
[2017-10-19 15:37] LABS: Glucose, Body Fluid 89 mg/dL (40-70)
== END 2017-10-13 15:57 | disposition home or self-care (01) | DRG 188 ==
PROVIDERS: Family Medicine; Family Provider Family Medicine; PCP Family Medicine
DX: J90 Pleural effusion, not elsewhere classified (principal); F17.210 Nicotine dependence, cigarettes, uncomplicated; I10 Essential (primary) hypertension; Z91.81 History of falling; Z79.899 Other long term (current) drug therapy; F41.9 Anxiety disorder, unspecified
CPT/HCPCS: 32555; 36415; 71045; 80048; 81001; 82945; 83615; 84156; 84157; 85027; 85610; 87070; 87075; 87086; 87205; 88108; 88305; 88313; 88341; 88342; 89050; 99218; G0378; G0379

== ENCOUNTER → 2017-10-22 08:56 | Outpatient (CLI) | payer OTHER, SELFPAY ==
--- NOTE | 2017-10-22 11:00 | CT_ITS ---
STUDY: CT ABDOMEN AND PELVIS WITH CONTRAST REASON FOR EXAM: Female, 52 years old. Resent adenocarcinoma. RADIATION DOSAGE (If Supplied By Facility): CTDIvol = ( 8.45 ) mGy, DLP = ( 592.84 ) mGycm TECHNIQUE: Transaxial images were obtained from the dome of the diaphragm to the symphysis pubis with oral contrast. 100 ml of Isovue 300 contrast was administered. Sagittal and coronal images were reconstructed. Individualized dose optimization techniques were used for this CT. COMPARISON: CT of the chest, October 22, 2017 FINDINGS: There is a right pleural effusion with associated atelectasis. There is a vague subpleural nodular density in the right lower lobe seen on image 1 of series 3. At the same level there is a vague nodular density posteriorly in the left lower lobe. There is a pleural-based nodular density in the left lower lobe on image 4 there is a 7 cm nodular focus in the lingula on image 6 there is also a 3 mm lingular nodule and a 3 mm left lower lobe nodule seen on image 8. A 5 mm lingular nodule is seen on image 9. There is a vague pleural-based nodule in the medial left lung base on image 13 as well as a 5 mm nodule in the left posterior costophrenic angle seen on image 17.. Normal liver. Normal gallbladder and extrahepatic biliary system. Normal spleen. There is pancreatic ductal dilatation seen in the pancreatic tail. The distal tail was not well visualized. There is a questionable vague low attenuation mass measuring 1.4 x 1.3 x 1.3 cm in the neck of the pancreas (image 33, series 3). Normal bilateral adrenal glands. The right kidney is not visualized. Normal left kidney. Normal visualized stomach. Normal small intestine. Normal colon. There is non-visualization of the appendix. There is diffuse atherosclerotic calcification of the abdominal aorta, without a demonstrated aneurysm. Normal inferior vena cava. Normal retroperitoneum. Normal urinary bladder. Normal uterus and ovaries. There is no pelvic lymphadenopathy. No free air or free fluid is seen within the peritoneal cavity. There is an umbilical hernia of omental fat. The abdominal wall is otherwise unremarkable. There are degenerative changes of the lumbar spine. No lytic or blastic lesions are seen. Normal osseous structures. CT/Abdomen/Pelvis WITH Contrast IMPRESSION: 1. Multiple nodules within the lungs suggestive of metastatic disease. 2. Large right pleural effusion and atelectasis. 3. Nonvisualization of the right kidney. 4. Vague low attenuation mass in the neck of the pancreas with atrophic pancreatic tail with associated ductal dilatation. Evaluation with MRI may be of benefit in further defining this finding. Electronically Signed: Ezequiel Rodas DO at 16:55 EST Tel [phone], Service support ,
--- NOTE | 2017-10-22 11:00 | CT_ITS ---
STUDY: CT CHEST WITH CONTRAST REASON FOR EXAM: Female, 52 years old. Recent adenocarcinoma. RADIATION DOSAGE (If Supplied By Facility): CTDIvol = ( 8.45 ) mGy, DLP = ( 592.84 ) mGycm TECHNIQUE: Transaxial imaging was performed following intravenous administration of 100 ml of Isovue 300 contrast material. Multiplanar coronal and sagittal images were reformatted. Individualized dose optimization techniques were used for this CT. COMPARISON: Chest, October 12, 2017. CT of the abdomen and pelvis, October 22, 2017. FINDINGS: There is a large right pleural effusion with right basilar atelectasis. There are multiple pulmonary nodules seen throughout both lungs. There is a 2 mm pleural-based nodule in the right upper lobe best seen on image 37 of series 6. There is a pleural-based 2 mm nodule in the anterior right upper lobe, best seen on image 48. There is a 2 mm pleural-based nodule in the anterolateral right upper lobe best seen on image 59. There is a area of nodular scarring in the right middle lobe measuring 7.2 cm best seen on image 66. There is a 2 mm pleural-based nodule in the right middle lobe best seen on image 69 and a 3 mm nodule in the right lower lobe best seen on image 71. In the left lung there is a 4 mm pleural-based nodule in the anteromedial left upper lobe best seen on image 28. There is a 1 mm pleural-based nodule in the anterior left upper lobe on image 33 there is a 2 mm nodular density in the superior segment of the left lower lobe best seen on image 36. There is a 1 mm nodule in the right upper lobe adjacent to the oblique fissure on image 38. This is a 3 mm nodular density in the posterior left lower lobe seen on image 60. There is a 3 mm subpleural node seen in the lingula on image 63. There is a 4 mm nodular density along the lateral oblique fissure on image 64. There is a 3 mm subpleural nodule in the lingula on image 68. There is a 3 mm nodule in the subpleural left lower lobe on image 76. There is a large 5 mm nodule in the lingula seen on image 80 there is a 3 mm nodule in the lingula as well as a 3 mm nodule in the lateral left lower lobe on image 82 on image 84 there is both a 6 mm nodule in the lingula and a 3 mm subpleural nodule in the anterior left lower lobe. There is a 5 mm nodule along the diaphragmatic surface in the left lower lobe on image 88 there is a 5 mm nodule in the medial left lung base on image 89 and finally a 5 mm nodule in the posterior left lower lobe on image 95. Normal heart and pericardium. Normal mediastinum. Normal hilar regions. Normal enhanced pulmonary arteries. Normal aorta arch and descending thoracic aorta. There are multi-level degenerative changes of the thoracic spine. There is no demonstrated abnormality of the visualized upper abdomen. CT/Chest WITH Contrast IMPRESSION: 1. Multiple small bilateral pulmonary nodules most suspicious for metastatic disease. 2. Large right pleural effusion with right basilar atelectasis. 3. Degenerative changes of the thoracic spine Electronically Signed: Ezequiel Rodas DO at 17:07 EST Tel [phone], Service support ,
--- NOTE | 2017-10-22 12:15 | HPBI_ITS ---
MAMMOGRAPHY - BILATERAL SCREENING REASON FOR EXAM: Female, 52 years old. Routine annual screening examination. PERTINENT HISTORY: Non-contributory. Adenocarcinoma of unknown origin. TECHNIQUE: Digital bilateral breast rivera (3D mammographic acquisition) in the CC and MLO projections. 2-D mediolateral oblique (MLO) and craniocaudad (CC) views of both breasts were obtained. CAD: Full Field Digital Mammography with Computer Added Detection was performed. COMPARISON: Comparison is made with prior outside examination dated January 15, 2011. FINDINGS: Breast Composition: The breasts are heterogeneously dense, which may obscure small masses. There are no dominant masses or suspicious calcifications. No other significant abnormalities are identified. There has been no significant change since the prior study. HPBI/DIAG MAMM W/CAD, BILAT IMPRESSION: Stable bilateral screening mammogram. Yearly follow-up mammogram recommended. (A) ASSESSMENT CATEGORY: BIRADS Category 1: Negative. A letter regarding these results will be sent to the patient by the facility within 30 days. Approximately 10% of breast cancers are not detected by mammography. A normal mammogram should not delay biopsy of a clinically suspicious abnormality. [id number] Electronically Signed: Chucho Cramer MD at 14:00 EST Tel [phone], Service support ,
--- NOTE | 2017-10-22 13:53 | PFT ---
INTRODUCTION: The patient is a 52-year-old female currently under the care of Dr. Bell that presents for pulmonary function testing secondary to a diagnosis of dyspnea on exertion. Respiratory therapy reports good patient effort and reports no other concerns. Bronchodilators were used during testing. INTERPRETATION: Forced expiration spirometry demonstrates no evidence of a fixed large airways obstructive ventilatory defect. There was no significant response to aerosolized bronchodilators, based upon strict ATS criteria. Spirograms are of fair quality and plateau normally. The respiratory flow volume loop reveals decreased expiratory flow rates, primarily at high lung volumes indicative of small airways obstruction. Body plethysmography was performed and reveals a TLC at the lower limits of normal, likely indicating an early restrictive ventilatory impairment. Diffusing capacity by single breath CO is preserved at 79% of predicted. IMPRESSION: There is no evidence of a fixed large airways obstructive ventilatory defect based upon GOLD and ATS criteria. There was, nonetheless, evidence of an early mild restrictive ventilatory impairment. Diffusing capacity is preserved. There are no previous pulmonary function studies available for comparison.
== END ==
PROVIDERS: Family Provider Family Medicine; PCP Family Medicine; Visit Provider Internal Medicine Critical Care Medicine
DX: C80.1 Malignant (primary) neoplasm, unspecified (principal); R06.00 Dyspnea, unspecified
CPT/HCPCS: 71260; 74177; 77062; 77066; 94060; 94726; 94729; Q9967; G0279

== ENCOUNTER → 2017-10-28 08:09 | Outpatient (CLI) | payer OTHER, SELFPAY ==
--- NOTE | 2017-10-28 08:12 | NM_ITS ---
CLINICAL: 52-year-old female with recent diagnosis of primary adenocarcinoma. WHOLE BODY 99m Tc MDP RADIONUCLIDE BONE SCINTIGRAPHY COMPARISON: CT of the chest, abdomen and pelvis reports 10/22/2017 FINDINGS: Following the intravenous administration of 25.2 mCi of 99m Tc MDP, whole body bone images reveal: 1. Increased radiopharmaceutical concentration is identified in the sternoclavicular compartment of the right shoulder, acromioclavicular and glenohumeral compartments of both shoulders, mid cervical spine posteriorly on the right, ninth thoracic vertebra posteriorly on the right, bilateral elbow and wrist articulations, anterior midline tibial compartment of the right knee. 2. Enhanced uptake appears evident in the distal right femoral metaphysis. 3. The remaining skeletal structures are scintigraphically unremarkable with normal-appearing renal images and urinary bladder activity identified. An increase in tracer concentration is defined in the bilateral maxilla and mandible most consistent with periodontal disease and/or periostitis. There is evidence of bilateral hyperostosis frontalis. NM/Bone Scan Whole Body IMPRESSION: 1. The increase in radiopharmaceutical concentration identified in the bilateral shoulders, cervical and thoracic spine, bilateral elbows, both wrist articulations, the right knee is most consistent with degenerative arthritis. 2. Facilitated radiotracer uptake visualized in the distal right femoral metaphysis may be further investigated with plain film radiography in the setting of recent histologically confirmed adenocarcinoma. Electronically Signed: Devyn Esparza DO at 16:36 EST Tel , Service support ,
--- NOTE | 2017-10-28 12:43 | MRI_ITS ---
STUDY: MRI ABDOMEN WITH AND WITHOUT CONTRAST REASON FOR EXAM: Female, 52 years old. Disease of the pancreas. Malignant pleural effusion. Follow-up to CT abdomen and pelvis, October 22, 2017. TECHNIQUE: Standardized fat and water weighted pulse sequences were obtained in all 3 orthogonal planes post contrast administration. 6 ml of Gadavist contrast material was administered intravenously for the contrast portion of the examination. COMPARISON: CT of the abdomen and pelvis, October 22, 2017. FINDINGS: There is a large right pleural effusion with subsegmental atelectasis. The visualized portions of the heart are within normal limits. Normal liver. Normal gallbladder and extrahepatic biliary system. Normal spleen. The tail of the pancreas appears foreshortened with a markedly distended pancreatic duct. In the pancreatic neck/proximal tail, there is a vague area of slightly increased echogenicity when compared to the adjacent liver. This measures 1.8 x 1.5 cm in size and correlates with the area of low attenuation seen on the CT. This appears slightly decreased in signal intensity on T1-weighted imaging and decreased signal intensity on the out of phase imaging. Postcontrast this demonstrates an enhancing ill-defined area of low attenuation measuring 1.5 x 1.2 x 1.1 cm in the early imaging. This demonstrates incomplete central enhancement delayed imaging. The mass lies just below the splenic artery without obvious involvement. There is no involvement of the splenic vein. The mass does not approximate the SMA or SMV. Normal bilateral adrenal glands. The right kidney is absent. There are tiny cortical cysts seen within the otherwise normal left kidney. Normal visualized stomach. Normal visualized small intestine. Normal visualized colon. Normal abdominal aorta. Normal inferior vena cava. Normal retroperitoneum. Normal abdominal wall. Normal osseous structures. MRI/MRI Abd WITH and W/O Contrast IMPRESSION: 1. Small mass in the pancreatic neck/proximal tail which correlates with the CT finding. The signal intensity and enhancement pattern as well as the diminutive pancreatic tail with dilated pancreatic duct is most suggestive of a pancreatic neoplasm. It is uncertain whether this represents an adenocarcinoma or a cystic neoplasm. Metastatic process is less likely. 2. Absence of the right kidney. 3. Small left renal cysts. Electronically Signed: Ezequiel Rodas DO at 11:08 EST Tel [phone], Service support ,
== END ==
PROVIDERS: Family Provider Family Medicine; PCP Family Medicine; Visit Provider Internal Medicine Hematology & Oncology
DX: C80.1 Malignant (primary) neoplasm, unspecified (principal); J91.0 Malignant pleural effusion; D75.89 Other specified diseases of blood and blood-forming organs; K86.9 Disease of pancreas, unspecified; R53.83 Other fatigue
CPT/HCPCS: 74183; 78306; A9585

== ENCOUNTER → 2017-11-05 08:41 | Outpatient (CLI) | payer OTHER, SELFPAY ==
[2017-10-29 15:09] VITALS: BP 161/96; BMI 25.1
--- NOTE | 2017-11-05 | PANB_PTH ---
PATIENT: CHATO NICHOLSON LOC: CT U#:[id number] AGE/SX: 59/F ROOM: RE11/05/[address]: Dr. Barbara Feliz MD : 1965 BED: DIS: SPEC #: [id number] RECD: 11/05/17 12:02 STATUS: FELA LILO #: [id number] KOBI: 11/05/17 00:[address]: Barbara Feliz DEPT: SURGICAL PATHOLOGY RECD BY: Devyn Finney ENTERED: 11/05/17 12:04 SP TYPE: PANC BX OTHR DR: Dr. Sherrie Jacob MD Tissues: Pancreas, NOS Procedures: FNA Specimen Adequacy Special Stain Group II Surgery Specimen Level V Cytology Other HEADER OPERATION: CT-guided pancreatic biopsy PRE-OP DIAGNOSIS: Pancreatic mass TISSUE SUBMITTED: 18g core x4 head-tail pancreas MICROSCOPIC DIAGNOSIS Pancreatic mass, CT-guided core biopsy: Negative for malignant cells. See comment. PHILLY:tanya 11/06/17 COMMENT The specimen is evaluated at the time of CT-guided pancreatic biopsy by Dr. Hilliard. Immediate Evaluation = Mucoid material mixed with benign cells are noted. Pending permanent sections. The specimen entirely consists of benign pancreatic acini, smooth muscle tissue and fibroadipose tissue. Malignant cells are not identified. Correlation with clinical, radiologic findings and appropriate follow up are necessary. Repeat biopsy is suggested if clinically indicated. Please make reference to previous specimen ([id number]) thoracentesis fluid for cytology with diagnosis of malignant cells present derived from non-small cell carcinoma, favor adenocarcinoma. Case has been reviewed in consultation with Dr. Sher who concurs with the above diagnosis. IDC:AM MICROSCOPIC DESCRIPTION Slides are reviewed. GROSS DESCRIPTION Received in fixative is one container labeled with the patient's name and designated pancreatic mass. The specimen consists of multiple small cores of pink-sarkar tissue that in aggregate measure 1 x 0.5 x <0.1 cm. The specimen is totally submitted in one cassette. / RY:tanya 11/05/17 TC:4 CPT: 60373, 89501
--- NOTE | 2017-11-05 08:44 | CT_ITS ---
PROCEDURE: CT GUIDED biopsy of the pancreatic abnormality in the body/tail portion of the pancreas. DATE: November 05, 2017. INDICATION: Female, 52 years old. Cystic abnormality in the body/tail portion of the pancreas. PHYSICIAN: Chucho Cramer M.D. RADIATION DOSAGE (If Supplied By Facility): CTDIvol = ( 22.5 ) mGy, DLP = ( 333.02 ) mGycm. Individualized dose optimization techniques were utilized. PROCEDURE: The risks, benefits, and alternatives to the procedure were explained to the patient. The specific risk of hemorrhage and infection requiring further treatment or intervention was detailed and accepted. Follow-up instructions were discussed with the patient as well. Written informed consent was obtained. The patient was brought into the CT suite and placed in the supine position. . An appropriate entry site was identified. The overlying skin was prepped and draped in the usual sterile fashion. 1% lidocaine was administered subcutaneously for local anesthesia. Conscious sedation was performed. The patient received 2 mg of Versed and 50 mcg of fentanyl intravenously. The patient was monitored by the department nurse. Conscious sedation was started at 10:26 AM and terminated at 10:[address] guidance, a total of 4 passes were performed utilizing a 20-gauge core biopsy needle. The specimens were then placed in the appropriate fluid and transported to the laboratory for analysis. Hemostasis was obtained. The patient tolerated the procedure well without immediate complications. CT/Biopsy/Inj or Needle Placement IMPRESSION: Successful CT guided biopsy of the pancreatic mass, as described above. Electronically Signed: Chucho Cramer MD at 11:20 EST Tel [phone], Service support ,
[2017-11-05 09:21] VITALS: BP 128/88; PULSE 103; RESP 14; TEMP 36.8; O2SAT 97; BMI 24.0
[2017-11-05 12:28] VITALS: BP 144/75; PULSE 93; RESP 16; O2SAT 97
== END ==
PROVIDERS: Family Provider Family Medicine; PCP Family Medicine; Visit Provider Internal Medicine Hematology & Oncology
DX: D13.6 Benign neoplasm of pancreas (principal); C78.02 Secondary malignant neoplasm of left lung; C78.01 Secondary malignant neoplasm of right lung; J91.0 Malignant pleural effusion; C80.1 Malignant (primary) neoplasm, unspecified; D75.89 Other specified diseases of blood and blood-forming organs; I10 Essential (primary) hypertension; F41.9 Anxiety disorder, unspecified; F17.210 Nicotine dependence, cigarettes, uncomplicated; Z79.899 Other long term (current) drug therapy
CPT/HCPCS: 48102; 77012; 88161; 88172; 88307; 88313; 99156; J7040; A4216

== ENCOUNTER 2017-11-20 06:21 | Day surgery (SDC) | payer OTHER, SELFPAY ==
[2017-11-20 06:40] VITALS: BP 145/81; PULSE 101; RESP 18; TEMP 36.6; O2SAT 97; BMI 23.0
[2017-11-20] MEDS: Cefazolin 2 GM in 0.9% Normal Saline 100 ML IV (07:53)
--- NOTE | 2017-11-20 07:56 | DCINST_ITS ---
Discharge Diet: No Restrictions Discharge Activity: May not drive while taking narcotic pain medications. May shower in (days): 1 - keep port site dry x 5 days Lifting Restrictions: no lifting >20 lbs for x 1 week with right arm Call your doctor if your incision/area has: Continuous Slow Oozing, Sudden Increased Bleeding, Increased Pain/ Swelling, Increased Redness, Foul Smelling Discharge, Swelling at the incision site Call your doctor if you observe: Fever of 101 or Higher Remove Dressing in (days):: 2 Allergies/Adverse Reactions: Allergies codeine Adverse Reaction (Severe, Verified 11/19/17 11:08) Itching Medications to take at Discharge Alprazolam [Xanax] 1 mg PO QHS PRN 10/12/17 Losartan Potassium 50 mg PO BID 10/12/17 Acetaminophen [Tylenol Tablet] 500 mg PO Q4H PRN tab 10/13/17 Hydrocodone/Acetaminophen [Hydrocodon-Acetaminophen 5-325] 1 ea PO Q6H PRN #12 tab 10/13/17 Primary Care Physician: Sherrie Jacob [Primary Care Provider] - Please Follow Up With: Deyanira Perry MD - after 5pm/weekend call with any issues When: call thursday for an appt in 10 days for suture removal Proposed Discharge Date: 11/20/17
[2017-11-20] MEDS: Bupivacaine 0.25% 30 ML Vial (08:15)
--- NOTE | 2017-11-20 08:50 | RAD_ITS ---
STUDY: X-RAY CHEST REASON FOR EXAM: Female, 52 years old. Port placement. TECHNIQUE: Single AP portable view of the chest. COMPARISON: Comparison is made with prior examination dated October 12, 2017. FINDINGS: A right-sided portacatheter has been placed. The tip is at the junction of the superior vena cava and right atrium. EKG liquids are seen. There now is evidence of complete opacification of the right hemithorax suggestive of a large right pleural effusion with underlying infiltration and/or atelectasis of the right lung. RAD/CXR for Line Placement IMPRESSION: The tip of the right-sided portacatheter is at the junction of the superior vena cava and right atrium. Complete opacification of the right hemithorax. Electronically Signed: Chucho Cramer MD at 10:23 EST Tel [phone], Service support ,
--- NOTE | 2017-11-20 08:53 | OP.PCM_ITS ---
Report of Operation Date of Procedure: 11/20/17 Pre-Operative Diagnosis: z45.2, adenocarcinoma Post-Operative Diagnosis: Same Surgery/Procedure Performed:: 1. Placement of right IJ port, 2. Use of fluoroscopy, 3. Use of ultrasound Type of Anesthesia:: MAC Anesthesiologist: Tono Saleem Special Medications: Ancef 2 g IV ?1 Estimated Blood Loss (mL): <10 cc Fluids Replaced: 700 cc Description of Procedure: After informed consent was given, the patient was brought to the operating room and placed in the supine position. Appropriate time out protocol was followed. He was then given IV conscious sedation for anesthesia. The patient 's right upper chest and neck were then prepped with a surgical skin preparation and sterile surgical drapes were placed. After proper landmarks were ascertained, the skin at the upper right chest area was then infiltrated with 1:1 mixture of 1% lidocaine with epinephrine and 0.5% maricaine. A needle trocar was then inserted into the right internal jugular vein with ultrasound guidance-multiple vessels were viewed with u/s and the right IJ was chosen-- and there was good aspiration of venous blood. A wire was then threaded into the needle trocar and this was visualized under fluoroscopy to ensure that the wire was in the superior vena cava. Once this was done, then the needle trocar was removed. A small skin julio cesar was made with an 11 blade knife at the wire entrance site. The dilator with the introducer sheath attached was then placed over the wire into the right internal jugular vein via the Seldinger technique and this was visualized under fluoroscopy. The dilator and sheath were in proper position as visualized by fluoroscopy. A subcutaneous pocket was then created caudad to the catheter insertion site. A transverse skin incision was made after the skin and subcutaneous tissues were infiltrated with local anesthetic. Blunt dissection was then used to create a space large enough for placement of the subcutaneous port. The catheter was then tunneled into the subcutaneous pocket. The wire and dilator were then removed. The catheter was then threaded into the introducer sheath and was positioned with its tip at the junction of the superior vena cava and the right atrium as visualized under fluoroscopy. The excess catheter was transected. The catheter was then attached to the subcutaneous port using manufacturers guidelines. The catheter was flushed with a heparin saline mixture prior to placement. Hemostasis was carefully controlled with electrocautery. The port was sutured to the subcutaneous fascia using 2-0 PDS suture at two sites. The port was then placed in the subcutaneous pocket and the sutures were ligated. The incision were reapproximated with interrupted subdermal 3-0 vicryl sutures. The skin was reapproximated with 3-0 nylon suture in a interrupted fashion. Steristrips were used for reinforcement of the skin closure at IJ insertion site and a sterile opsite dressings were applied. The patient tolerated the procedure well. Implants Used: Bard PowerPort isp M.R.I. 6Fr Lot [id number] Grafts/Implants Used: Bard PowerPort isp M.R.I. 6Fr Lot [id number] - Complications none
[2017-11-20 09:00] VITALS: BP 112/67; BP 123/47; BP 145/81; PULSE 87; PULSE 97; RESP 16; TEMP 36.2; O2SAT 95; O2SAT 96
[2017-11-20 09:05] VITALS: BP 119/55; BP 145/81; PULSE 88; RESP 16; O2SAT 94
[2017-11-20 09:10] VITALS: BP 111/72; BP 145/81; PULSE 90; RESP 16; O2SAT 95
[2017-11-20 09:16] VITALS: BP 115/75; BP 145/81; PULSE 88; RESP 16; TEMP 36.5; O2SAT 93
--- NOTE | 2017-11-20 09:59 | PCM.PN.BLA ---
Progress Note CXR per my read does show good line placement, no PTX; however there is a right hemithorax. Pt previously had thoracentesis on 10/12/17 for 1 Liter showing the +adenocarcinoma. Pt denies SOB on room air, only states she has been feeling the heaviness in right chest more like before the thoracentesis. Discuss with Dr. Kc and Dr. Cramer and the pt. Plan is to drain the right side if there is any increased SOB for the patient to prevent multiple thoracentesis, which could increase the chance of infection--Pt understood and was agreeable to plan.
[2017-11-20] MEDS: HYDROcodone Bitartrate/Apap 5/325 Tablet PO (10:04)
[2017-11-20 10:05] VITALS: BP 145/81
== END 2017-11-20 10:37 | disposition home or self-care (01) ==
LOC: SDC 06:22 → AC 06:23
PROVIDERS: Family Provider Family Medicine; PCP Family Medicine; Visit Provider Surgery
PROC: (CPT 36561; principal; 2017-11-20 07:45)
DX: Z45.2 Encounter for adjustment and management of vascular access device (principal); C34.92 Malignant neoplasm of unspecified part of left bronchus or lung; C34.91 Malignant neoplasm of unspecified part of right bronchus or lung; J94.2 Hemothorax; K86.9 Disease of pancreas, unspecified; I10 Essential (primary) hypertension; F41.9 Anxiety disorder, unspecified; F17.200 Nicotine dependence, unspecified, uncomplicated; Z90.5 Acquired absence of kidney
CPT/HCPCS: 36561; 71045; 77001; J3010; J7120; C1788

== ENCOUNTER → 2017-11-27 09:26 | Outpatient (CLI) | payer OTHER, SELFPAY ==
--- NOTE | 2017-11-27 09:33 | US_ITS ---
PROCEDURE: ULTRASOUND GUIDED THORACENTESIS. DATE: November 27, 2017. INDICATION: Female, 52 years old. Right pleural effusion. PHYSICIAN: Chucho Cramer M.D. PROCEDURE: The risks, benefits, and alternatives to the procedure were explained to the patient. The specific risks of bleeding, infection, and pneumothorax requiring chest tube insertion were discussed and accepted. Written informed consent was obtained. Ultrasonographic evaluation of the right lower pleural space was carried out. An adequate pocket was identified. The patient was placed in the sitting, upright position. The overlying skin was prepped and draped in sterile fashion. 1% lidocaine was administered subcutaneously for local anesthesia. Under ultrasound guidance, a 6 Kinyarwanda thoracentesis needle/catheter system was advanced into the right posterior lower pleural fluid collection. Approximately 1500 mL of bloody fluid was drained. The catheter was removed, and a sterile dressing was applied. The patient tolerated the procedure well. A chest x-ray was ordered. US/Thoracentesis W US IMPRESSION: Ultrasound-guided right thoracentesis. Electronically Signed: Chucho Cramer MD at 12:23 EST Tel [phone], Service support ,
--- NOTE | 2017-11-27 10:05 | RAD_ITS ---
STUDY: X-RAY CHEST REASON FOR EXAM: Female, 52 years old. Status post right thoracentesis. TECHNIQUE: Inspiration expiration views were obtained. COMPARISON: Comparison is made with prior examination dated November 20, 2017. FINDINGS: A right-sided portacatheter is seen. There is evidence of a 15% right-sided pneumothorax. The patient is asymptomatic. Small residual left pleural effusion with right basilar atelectasis persists. RAD/Chest Insp/Exp 2 View IMPRESSION: Right 50% pneumothorax following the right thoracentesis. Electronically Signed: Chucho Cramer MD at 13:47 EST Tel [phone], Service support ,
== END ==
PROVIDERS: Family Provider Family Medicine; PCP Family Medicine; Visit Provider Internal Medicine Hematology & Oncology
DX: J95.811 Postprocedural pneumothorax (principal); J91.0 Malignant pleural effusion; C80.1 Malignant (primary) neoplasm, unspecified; C78.00 Secondary malignant neoplasm of unspecified lung; K86.9 Disease of pancreas, unspecified
CPT/HCPCS: 32555; 71046

== ENCOUNTER 2017-11-29 16:05 | Emergency (ER) | payer OTHER, SELFPAY ==
[2017-11-29 16:06] VITALS: BP 150/99; PULSE 123; RESP 20; TEMP 36.9; O2SAT 96; BMI 22.6
[2017-11-29 16:15] VITALS: BP 141/91; PULSE 125; RESP 16; O2SAT 94; O2SAT 95
--- NOTE | 2017-11-29 16:23 | ED.VISSUMM ---
- ER Visit Summary Date of Service: 11/29/17 Chief Complaint: Right-sided chest pain, swishing sensation in her chest and shortness of breath History of Present Illness: The patient is a 52 F was diagnosed with adenocarcinoma of the lung earlier this year. Had a thoracentesis the end of September which was positive for malignancy. She had a port placed approximately 16 days ago. She received her first chemotherapy November 26. She underwent thoracentesis on November 27 for increased shortness of breath. The chest x-ray per report revealed a 50% pneumothorax on the right and the body of the note. The impression read 50%. Patient denies any fever or chills. She does report weight loss. She does have slight cough which is not abnormal. The cough is nonproductive. She denies nausea, vomiting or diarrhea. She denies black or maroon stool. She denies dysuria, frequency, urgency hematuria. She denies any leg pain, swelling discoloration. She denies bruising easily or any rash. Physical Examination: Vital signs are remarkable for blood pressure 150/99. Heart rate 123 and respirations 20. She is thin. Pupils equal round reactive. Extra muscle intact. TMs are normal. Posterior pharynx unremarkable. She has a raised erythematous pruritic rash noted near the port site. There is diminished breath sounds on the right. There is wheezing on the left. Heart is rapid and regular. There is no murmur, gallop or rub. There is equivocal hyperresonance to percussion on the right. Abdomen is soft scaphoid nontender. There is no asymmetry, swelling, discoloration, leg vein distention, palpable cords or tenderness along the distribution of the deep venous system. Neuro exam is nonfocal Test Results: The 20 next Tory view reveals a 50% pneumothorax with significant pleural effusion. Post thoracostomy tube reveals less of an effusion since this was aspirated and the tube is pointing caudally inside a cephalad. The thoracostomy tube with Heimlich valve is functioning properly. Emergency Department Course and Treatment: Light of the fact that she had a document pneumothorax and now complains of increased shortness of breath with diminished breath sounds on the right will obtain x-ray to assess whether the pneumothorax has improved or has gotten worse. Patient was consented for thoracostomy tube. Patient was prepped draped sterile manner. 7 Lebanese thoracostomy tube was placed. Approximately 700 cc of bloody pleural fluid was aspirated from chest cavity. Heimlich valve was then attached. The thoracostomy tube is functioning properly. Treatment Plan: 7 Lebanese thoracostomy tube with Heimlich valve, outpatient chest x-ray 1 hour prior to appointment with Dr. Reed Disposition: Charge to home with appropriate home-going instructions and outpatient follow-up in 24 hours and home pack for [place] Impression: Dyspnea secondary to expanding pneumothorax status post thoracentesis This note was generated with SpotMe dictation software. It may contain incorrect words, spelling, and punctuation that were not noted in review of the chart prior to signing ED Disposition - Plan for ED Patient: Disposition: Home or Assisted Living Chief Complaint: Shortness of Breath Instructions: ED Pneumothorax Blunt Trauma Referrals: Sherrie Jacob [Primary Care Provider] - Deyanira Perry MD [STAFF PHYSICIAN] - 1 Day Additional Instructions: Make outpatient appointment for chest x-ray 1 hour prior to your appointment with Dr. Deyanira Perry
--- NOTE | 2017-11-29 16:53 | RAD_ITS ---
STUDY: X-RAY CHEST REASON FOR EXAM: Female, 52 years old. Status post thoracentesis. Previous pneumothorax. TECHNIQUE: Inspiration and expiration views. COMPARISON: 11/27/2017. FINDINGS: Right Mediport catheter terminates near the cavoatrial junction. Stable appearance of moderate right pneumothorax. Increasing pleural effusion and atelectasis or infiltrate in the lower right lung. Left lung is clear. Normal size heart. Normal mediastinum and norma. Normal visualized pulmonary arteries. Normal visualized aortic arch and descending thoracic aorta. Normal visualized thoracic spine. Normal visualized ribs, clavicles, and shoulders. There is no demonstrated abnormality of the visualized soft tissue structures of the upper abdomen. RAD/Chest Insp/Exp 2 View IMPRESSION: Stable appearance of moderate right pneumothorax. Increasing pleural effusion and atelectasis or infiltrate in the lower right lung. Electronically Signed: Wilmer Moser MD at 17:14 EDT , Service support ,
[2017-11-29] MEDS: DiphenhydrAMINE 25 MG Capsule PO (17:04)
--- NOTE | 2017-11-29 17:33 | RAD_ITS ---
STUDY: X-RAY CHEST REASON FOR EXAM: Female, 52 years old. Status post thoracotomy tube. TECHNIQUE: Single AP portable view of the chest. COMPARISON: Same day 4:47 PM. FINDINGS: A new thin bore chest tube is seen terminating in the upper right hemithorax. Previously discussed pneumothorax is smaller but still present, probably 40%. Pleural effusion appears smaller. Left lung remains clear. RAD/Chest 1 View (Portable) IMPRESSION: Improved but still moderate right pneumothorax. Electronically Signed: Wilmer Moser MD at 18:33 EDT , Service support ,
[2017-11-29 18:05] VITALS: BP 122/91; PULSE 114; RESP 22; O2SAT 93
[2017-11-29 18:51] VITALS: BP 132/90; PULSE 117; RESP 22; O2SAT 95
[2017-11-29] MEDS: HYDROcodone Bitartrate/Apap 5/325 Tablet PO ×2 (18:55→19:05)
== END 2017-11-29 19:06 | disposition home or self-care (01) ==
PROVIDERS: Emergency Provider Emergency Medicine; Family Provider Family Medicine; PCP Family Medicine
DX: J95.811 Postprocedural pneumothorax (principal); C34.90 Malignant neoplasm of unspecified part of unspecified bronchus or lung; J90 Pleural effusion, not elsewhere classified; I10 Essential (primary) hypertension; Z72.0 Tobacco use; Z79.899 Other long term (current) drug therapy
CPT/HCPCS: 32551; 71045; 71046; 99283

== ENCOUNTER 2017-11-30 16:00 | Inpatient (IN) | payer OTHER, SELFPAY ==
--- NOTE | 2017-11-30 13:42 | RAD_ITS ---
STUDY: X-RAY CHEST REASON FOR EXAM: Female, 52 years old. Pneumothorax TECHNIQUE: Frontal and lateral views of the chest. COMPARISON: Numerous priors including 11/29/2017. FINDINGS: No definite change in the moderate right pneumothorax. Increasing right pleural effusion and atelectasis or infiltrate in the lower right hemithorax. No other changes. Left lung remains clear. RAD/Chest PA and Lateral IMPRESSION: No definite change in the moderate right pneumothorax. Increasing right pleural effusion and atelectasis or infiltrate in the lower right hemithorax. Electronically Signed: Wilmer Moser MD at 14:10 EDT , Service support ,
[2017-11-30 16:18] VITALS: BMI 22.1
[2017-11-30 16:29] VITALS: BMI 22.2
--- NOTE | 2017-11-30 16:52 | CON.PCM_ITS ---
Problem List (1) Pleural effusion, malignant Status: Acute (2) Mass of pancreas Status: Acute (3) Lung metastases Status: Acute (4) Pneumothorax Status: Acute Qualifiers: - Consult Date of Consult: 11/30/17 Intake Vital Signs 11/30/17 Blood Pressure 146/90 11/30/17 Blood Pressure Location Rt brachial 11/30/17 Blood Pressure Position Sitting 11/30/17 Respiratory Rate 20 11/30/17 Pulse Rate 115 11/30/17 Temperature 98.1 F 11/30/17 Pulse Ox 96 Intake Visit Reasons: F/U ER 11/29 CK DRAIN Chief Complaint: recheck chest tube--draining freely Personal Consultant Required: No Is patient in pain?: No Allergies codeine Adverse Reaction (Severe, Verified 11/30/17 15:14) Itching Medications Alprazolam [Xanax] 1 mg PO QHS PRN 10/12/17 [History Confirmed 11/30/17] Losartan Potassium 50 mg PO BID 10/12/17 [History Confirmed 11/30/17] Acetaminophen [Tylenol Tablet] 500 mg PO Q4H PRN tab 10/13/17 [Rx Confirmed 09/07] Hydrocodone/Acetaminophen [Hydrocodon-Acetaminophen 5-325] 1 ea PO Q6H PRN #12 tab 10/13/17 [Rx Confirmed 11/30/17] Is last menstrual period known: No Post menopausal: No Patient : No PFSH Medical History Hypertension (Chronic) Tobacco abuse (Chronic) port placement (Acute) Surgical History H/O kidney removal (Acute) History of appendectomy (Acute) S/P thoracostomy tube placement (Acute) Family History Mother Heart disease CAD (coronary artery disease) Social History Smoking Status: Current every day smoker second hand exposure: Yes alcohol intake: current alcohol intake frequency: a few times a week Alcohol type: beer substance use type: does not use caffeine: Yes Type: coffee HPI: CHATO NICHOLSON, is a 52 F who presents to our office for follow-up of a pneumothorax. Patient has been diagnosed with pancreatic cancer with metastasis to the lungs. She is currently following with Dr. Feliz for chemotherapy. Patient states she received a paracentesis on Thursday, 11/27 at [facility] radiology. She had 1500 mL of fluid removed. Patient noted the procedure was painful. A chest x-ray was obtained following the procedure noting a 50% pneumothorax following the procedure. Patient was discharged to home. Patient presented to the [facility] ED on Thursday due to pain on the right chest. Repeat CXR showed 50% pneumothorax. Chest tube was inserted in the ED. Repeat chest x- ray was obtained showing good placement of the tube and 40% pneumo. Patient denies shortness of breath. She currently has a chest tube in place. Patient had a repeat chest x-ray today demonstrating no definite change in moderate right pneumothorax. Increasing right pleural effusion and atelectasis or infiltrate in the right lower hemithorax. Patient denies previous M.I., stroke, and blood clots. She has a past history of hypertension otherwise does not take any routine medication. Exam Const General: cooperative, healthy appearing, comfortable, no acute distress HENPR Head: normal to inspection Eyes General: appearance normal, both eyes and all related structures Neck Neck mass: No Resp Effort & Inspection: normal respiratory effort, cough Auscultation: diminished lung sounds on the right (upper right ), wheezes ( left lung ) inspiratory wheezes Cardio Rate: regular rate Rhythm: regular rhythm GI Inspection: normal to inspection Palpation: soft Auscultation: normal bowel sounds Skin General: no rashes or lesions noted Neuro General: no focal motor deficits Extrem General: normal to inspection Psych Appearance: grossly normal Assessment & Plan Problems 1. Postprocedural pneumothorax J95.811 2. Pleural effusion, malignant J91.0 Plan - Dr. Hernandez also evaluated this patient. Recommend direct admission for a pneumothorax. Place patient on wall suction. Will check repeat chest x-ray in the morning. Will determine at that time if chest tube will need to be exchanged at bedside. Patient and her significant other have had the opportunity to ask and have questions answered. Patient verbally understands and agrees with the plan. We will continue to monitor this patient. Diagnoses Postprocedural pneumothorax J95.811 Pneumothorax type: postprocedural Pleural effusion, malignant J91.0 - Reason for Consult Postprocedure pneumothorax
[2017-11-30] MEDS: DiphenhydrAMINE 50 MG/ML Syringe 25 MG IV (17:19)
--- NOTE | 2017-11-30 17:32 | RAD_ITS ---
STUDY: X-RAY CHEST REASON FOR EXAM: Female, 52 years old. Follow-up right-sided pneumothorax TECHNIQUE: Single AP portable view of the chest. COMPARISON: Prior study of earlier this date 1:44 PM FINDINGS: A right-sided Mediport is present with catheter tip in the distal SVC. There remains a moderate right pneumothorax, unchanged from the prior study. There is no tension component. There is a moderate right-sided effusion as well as right basilar atelectasis. The left lung is clear. Normal size heart. Normal mediastinum and norma. Normal visualized pulmonary arteries. Normal visualized aortic arch and descending thoracic aorta. There are degenerative changes of the thoracic spine. Normal visualized ribs, clavicles, and shoulders. There is no demonstrated abnormality of the visualized soft tissue structures of the upper abdomen. RAD/Chest 1 View (Portable) IMPRESSION: Stable moderate right pneumothorax. There appears to be an interval increase in the degree of right basilar atelectasis. No other significant interval change is evident. Electronically Signed: Kiran Welsh MD at 18:00 EDT , Service support ,
[2017-11-30 17:40] LABS: Absolute Lymphocyte Count 1.38 X10^3/ul (0.83-4.51); Basophil# 0.04 X10^3/uL; Basophil% 0.7 % (0-1); Eosinophils% 1.8 % (0-5); Hematocrit 33.6 % (37-47); Hemoglobin 10.8 g/dl (12.0-15.0); Lymphocyte # 1.38 X10^3/ul (4.0); Lymphocyte % 24.9 % (19-41); Mean Corp Hgb Conc 32.1 g/gl (32-36); Mean Corpuscular Hgb 30.9 pg (27.0-32.0); Mean Platelet Vol. 9.7 fl (6.2-12.0); Monocyte# 0.03 X10^3/uL; Monocyte% 0.5 % (0-10); Neutrophil # 3.99 X10^3/uL (2.7-7.7); Neutrophil % 71.9 % (47-70); Platelet Count 241 K/mm3 (150-450); RBC Distribution Width CV 12.2 % (11.6-14.6); RBC Distribution Width SD 42.7 fl (35.1-43.9); White Blood Count 5.6 K/mm3 (4.4-11.0)
[2017-11-30 17:42] LABS: Anion Gap 7 (5-15); BUN 17 mg/dL (7-18); BUN/Creat Ratio 33.7 RATIO (10-20); Calcium,Total 8.6 mg/dL (8.5-10.1); Chloride 103 mmol/L (98-107); EST Glomerular Filtration Rate 135 mL/min (>60); Est Glom Filt Rate - Afr Amer 164 mL/min (>60); Estimated Creatinine Clearance 97.06 ml/min; Glucose 89 mg/dL (74-106); POSITIVE COUNT NO; POSITIVE DIFFERENTIAL NO; POSITIVE MORPHOLOGY NO; Sodium Level 135 mmol/L (136-145)
[2017-11-30] MEDS: Cefazolin 1 GM/50 ML BAG IV (18:00)
[2017-11-30 20:34] VITALS: BP 129/81; PULSE 111; RESP 18; TEMP 37.2; O2SAT 95
[2017-11-30] MEDS: oxyCODONE 5 MG Tablet PO (20:52)
[2017-12-01] MEDS: DiphenhydrAMINE 50 MG/ML Syringe 25 MG IV ×4 (00:05→22:06)
[2017-12-01] MEDS: oxyCODONE 5 MG Tablet PO ×5 (03:20→22:59)
[2017-12-01 04:10] VITALS: BP 159/96; PULSE 97; RESP 18; TEMP 37; O2SAT 97
--- NOTE | 2017-12-01 04:28 | NURSING ---
Patients daughter was in with her significant other last evening. I was in the room to given pt a pain pill. Pt was calm, states pain was a 6. She was talking to daughter and myself. Daughter states to pt that she should not wait to take pain medication and she should ask for it more often, she states. You only have a year to live so you should spend it fucked up I spoke with pt and family and explained how pain control was very important but more importantly I need her to be conherent. I explained how opiates worked and I explained how important it was to be a part of her care and be able to tell us if her status is changing. I told her with decreased cognition there is a decrease in the chance she will notice a change in the way she feels. Also with decreased cognition it increases the chance for falls and accidents. Pt daughter and son were upset and asking how we planned to control her pain when she got worse. I explained that we would consistently monitor how she is doing with tx and change medications as needed. Our goal is to control pain and maintain mental stability. Pt got upset with daughter and her daughters significant other and told them to stop demanding she get more medicine that it was her choice to be medicated or not. Family got upset and stormed out of the room. I spoke with the pt about her care and stages of grief. Im sure her daughter is hurting right now and dosent know how to handle it. I told her it was our job to educate about medications, and disease as well as control pain. Her and I spoke for about 45mins about her care and her feeling. Pt is calm and stable.
[2017-12-01] MEDS: 0.9% NaCl VAD Flush 10 ML IV ×8 (05:40→22:01)
[2017-12-01] MEDS: Cefazolin 1 GM/50 ML BAG IV ×3 (05:41→22:01)
--- NOTE | 2017-12-01 06:00 | RAD_ITS ---
STUDY: X-RAY CHEST REASON FOR EXAM: Female, 52 years old. Right-sided pneumothorax. TECHNIQUE: Single AP portable view of the chest. COMPARISON: 11/30/2017 FINDINGS: Stable multiple or chest drain right mid lung periphery. Stable right internal jugular approach port. Stable mild to moderate right pneumothorax along the apex and right base, possible adhesion of visceral to parietal pleural along the right mid chest wall which is stable. Stable volume loss in the right base with elevation of the minor diaphragm. Stable hyperinflation of left lung parenchyma. No left pleural effusion detected. Normal size heart. Normal mediastinum and norma. Normal visualized pulmonary arteries. Normal visualized aortic arch and descending thoracic aorta. There are diffuse degenerative changes of the visualized thoracic spine. Normal visualized ribs, clavicles, and shoulders. There is no demonstrated abnormality of the visualized soft tissue structures of the upper abdomen. RAD/Chest 1 View (Portable) IMPRESSION: No significant change of small to moderate right pneumothorax with volume loss in the right base, probable adhesions of the visceral to parietal parietal and the right mid lung parenchyma, right chest tube and right port basement. Stable volume loss in the right hemithorax. Stable hyperinflation left lung. Electronically Signed: Mel Hyatt MD at 6:21 EDT , Service support ,
[2017-12-01 06:03] LABS: Absolute Lymphocyte Count 1.33 X10^3/ul (0.83-4.51); Absolute Neutrophil Count 2.4 X10^3/uL (2.0-7.7); Basophil# 0.02 X10^3/uL; Basophil% 0.5 % (0-1); Eosinophil# 0.14 X10^3/uL; Eosinophils% 3.5 % (0-5); Hematocrit 31.8 % (37-47); Hemoglobin 10.6 g/dl (12.0-15.0); Lymphocyte # 1.33 X10^3/ul (4.0); Lymphocyte % 33.5 % (19-41); Mean Corp Hgb Conc 33.3 g/gl (32-36); Mean Corpuscular Hgb 32.5 pg (27.0-32.0); Mean Corpuscular Volume 97.5 fL (81-99); Mean Platelet Vol. 9.6 fl (6.2-12.0); Monocyte# 0.07 X10^3/uL; Monocyte% 1.8 % (0-10); Neutrophil # 2.41 X10^3/uL (2.7-7.7); Neutrophil % 60.7 % (47-70); Platelet Count 223 K/mm3 (150-450); RBC Distribution Width CV 11.6 % (11.6-14.6); RBC Distribution Width SD 40.2 fl (35.1-43.9); Red Blood Count 3.26 M/mm3 (4.2-5.4)
[2017-12-01 06:06] LABS: POSITIVE COUNT NO; POSITIVE DIFFERENTIAL NO; POSITIVE MORPHOLOGY NO
[2017-12-01 06:18] LABS: Anion Gap 8 (5-15); BUN 13 mg/dL (7-18); BUN/Creat Ratio 21.6 RATIO (10-20); Calcium,Total 8.5 mg/dL (8.5-10.1); Chloride 103 mmol/L (98-107); EST Glomerular Filtration Rate 110 mL/min (>60); Est Glom Filt Rate - Afr Amer 133 mL/min (>60); Estimated Creatinine Clearance 80.88 ml/min; Glucose 125 mg/dL (74-106); Potassium 4.2 mmol/L (3.5-5.1); Sodium Level 138 mmol/L (136-145)
[2017-12-01 07:32] VITALS: O2SAT 97
--- NOTE | 2017-12-01 07:43 | PCM.PN.SRG ---
Patient Problems: Active and Suspected Problems (Last Reviewed 11/30/17 @ 15:13 by Quiana Piper) Pneumothorax (Acute) Rash (Acute) Urticaria (Acute) Subjective: Patient evaluated resting comfortably in bed. She denies shortness of breath. Canister continues to bubble. CXR this morning demonstrates continued moderate pneumothorax. - Physical Exam General: Alert, Oriented x3, Cooperative Lungs: Normal air movement - Left lung, Diminished - R upper and lower lung, - - Chest tube intact. Vital Signs Temp Pulse Resp BP Pulse Ox 98.6 F 97 18 159/96 H 97 12/01/17 04:10 12/01/17 04:10 12/01/17 04:10 12/01/17 04:10 12/01/17 04:10 Oxygen Delivery Method Room Air Weight: 117 lb 4.575 oz Body Mass Index (BMI) 22.1 Intake and Output for Last 24 Hours 11/29/17 11/30/17 12/01/17 23:59 23:59 23:59 Intake Total 794 / 794 Output Total 225 / 225 90 / 90 Balance 569 / 569 -90 / -90 Laboratory Tests Past 24 Hrs 11/30/17 11/30/17 12/01/17 16:52 16:52 05:45 WBC 5.6 4.0 L RBC 3.50 L 3.26 L Hgb 10.8 L 10.6 L Hct 33.6 L 31.8 L MCV 96.0 97.5 MCH 30.9 32.5 H MCHC 32.1 33.3 RDW 12.2 11.6 RDW Differential 42.7 40.2 Plt Count 241 223 MPV 9.7 9.6 Immature Gran % (Auto) 0.200 0.000 Neut % (Auto) 71.9 H 60.7 Lymph % (Auto) 24.9 33.5 [place] % (Auto) 0.5 1.8 Eos % (Auto) 1.8 3.5 Baso % (Auto) 0.7 0.5 Absolute Neuts (auto) 4.0 2.4 Absolute Lymphs (auto) 1.38 1.33 Total Counted Not Reportable Not Reportable Sodium 135 L Potassium 4.0 Chloride 103 Carbon Dioxide 25.0 Anion Gap 7 BUN 17 Creatinine 0.50 L Estim Creat Clear Calc 97.06 Est GFR (MDRD) Af Amer 164 Est GFR (MDRD) Non-Af 135 BUN/Creatinine Ratio 33.7 H Glucose 89 Calcium 8.6 12/01/17 05:45 WBC RBC Hgb Hct MCV MCH MCHC RDW RDW Differential Plt Count MPV Immature Gran % (Auto) Neut % (Auto) Lymph % (Auto) [place] % (Auto) Eos % (Auto) Baso % (Auto) Absolute Neuts (auto) Absolute Lymphs (auto) Total Counted Sodium 138 Potassium 4.2 Chloride 103 Carbon Dioxide 27.0 Anion Gap 8 BUN 13 Creatinine 0.60 Estim Creat Clear Calc 80.88 Est GFR (MDRD) Af Amer 133 Est GFR (MDRD) Non-Af 110 BUN/Creatinine Ratio 21.6 H Glucose 125 H Calcium 8.5 Assessment/Plan Active and Suspected Problems (Last Reviewed 11/30/17 @ 15:13 by Quiana Piper) Pneumothorax (Acute) Rash (Acute) Urticaria (Acute) I am following this patient in conjunction with Dr. Hernandez Traumatic pneumothorax. Chest tube intact with continued air leak Continue to monitor this patient Dr. Hernandez will decided if exchanging of the chest tubes is needed
[2017-12-01 10:10] VITALS: BP 127/88; PULSE 92; RESP 18; TEMP 36.8; O2SAT 97
[2017-12-01] MEDS: Losartan Potassium 50 MG Tablet PO ×2 (10:33→22:01)
--- NOTE | 2017-12-01 10:57 | CASEMGMT ---
RN ANDRE Face to Face with patient for initial transition planning/care coordination assessment. RN CM introduced self and role at [facility]. Patient lying in bed, alert and oriented. Patient willing to participate in assessment and is able to answer all questions appropriately. Care providers, pharmacy, and demographics verified. See link attached. Patient wishes to discharge home, denies need for home health at this time. Patient states she has no further needs or concerns at this time. CM to follow for discharge planning needs that may arise. Disposition Plan: Patient to discharge home with family support and follow-up plans in place.
--- NOTE | 2017-12-01 11:15 | CT_ITS ---
STUDY: CT CHEST WITHOUT CONTRAST REASON FOR EXAM: Female, 52 years old. Pneumothorax. Chest tube. Pancreatic cancer. RADIATION DOSAGE (If Supplied By Facility): CTDIvol = ( 6.56 ) mGy, DLP = ( 232.64 ) mGycm TECHNIQUE: Transaxial imaging was performed without the administration of intravenous contrast material. Individualized dose optimization techniques were used for this CT. COMPARISON: 12/01/2017 3:54 AM FINDINGS: There are interstitial fibrotic changes of the lungs. Continued moderate to large right pneumothorax. Moderate hydropneumothorax along the posterior right hemithorax. Patchy areas of atelectasis throughout the mid and lower right lung. A small bore pleural drain tube is seen terminating in the lateral upper right hemithorax. Left lung is hyperexpanded numerous pulmonary nodules some of which are very irregular and poorly defined are seen of the left lung which could represent metastatic disease, especially in the lower lung torres. As examples, there is a 5 mm nodule in the posterior left lower lobe, image 62, 7 mm irregular nodule in the posterior right lower lobe on image 73, 5 mm nodule in the posterior lateral lower left lung on image 79, 11 mm nodule in the anterior left lung base on image 83, 7 mm nodule in the posterior left lung base on image 97. No left pleural effusion. Normal heart and pericardium. Normal mediastinum. Normal hilar regions. Normal unenhanced pulmonary arteries. Normal aorta arch and descending thoracic aorta. Normal osseous structures. No gross acute abnormality in the abdomen or pelvis. CT/Chest without Contrast IMPRESSION: Persistent moderate large right hydropneumothorax and marked atelectasis of the right lung. Numerous nodules in the left lung suspicious for metastatic disease. Electronically Signed: Wilmer Moser MD at 12:26 EDT , Service support ,
[2017-12-01] MEDS: ALPRAZolam 0.5 MG Tablet 1 MG PO (14:49)
[2017-12-01] MEDS: Midazolam 2 MG/2 ML Syringe IV (15:36)
--- NOTE | 2017-12-01 16:00 | PCM.OPRPT ---
Problem List (1) Pleural effusion, malignant Status: Acute (2) Pneumothorax Status: Acute Qualifiers: Pneumothorax type: postprocedural Qualified Code(s): J95.811 - Postprocedural pneumothorax Report of Operation Date of Procedure: 12/01/17 Pre-Operative Diagnosis: 1. Right-sided pneumothorax after thoracentesis. 2. malignant pleural effusion on the right Post-Operative Diagnosis: Same Surgery/Procedure Performed:: Placement of a 20 Monegasque right-sided chest tube Type of Anesthesia:: IV Sedation - 2 mg of Versed, Local Description of Procedure: Patient's old Pleurx catheter was removed from the chest cavity without difficulty the right side of the chest were then sterilely prepped and draped in usual fashion. Patient was given 2 mg of Versed. Local was injected. Dissection was carried down to the rib. I dissected over the rib with a Magdalena clamp and an opening into the chest cavity I placed a 20 Monegasque chest tube in here and directed the posterior and superior in nature I sutured it to the skin at 24 cm with a 2-0 nylon it was hooked up to suction and approximately a 200 cc of bloody fluid came out. Chest tube was sterilely draped. Portal chest x-ray was ordered. Patient tolerated the procedure well. - Admit VTE Documentation VTE Present on Admission: No VTE Mechan Device Prophylaxis: SCD's VTE Pharm Prophylaxis ordered?: No Reason prophylaxis not ordered:: Treatment Not Indicated
--- NOTE | 2017-12-01 16:05 | RAD_ITS ---
STUDY: X-RAY CHEST REASON FOR EXAM: Female, 52 years old. Chest tube placement TECHNIQUE: Single AP portable view of the chest. COMPARISON: Prior study of earlier this date 3:54 AM FINDINGS: A right-sided chest tube is present with tip overlying the right upper lobe apex. A right-sided MediPort is again noted with tip in the region of the atriocaval junction. There is a moderate right pneumothorax appearing similar to the prior study. There is a small right-sided effusion, also stable in the interval. Normal size heart. Normal mediastinum and norma. Normal visualized pulmonary arteries. Normal visualized aortic arch and descending thoracic aorta. There are degenerative changes of the visualized thoracolumbar spine. There is a lower thoracic levoscoliosis. Normal visualized ribs, clavicles, and shoulders. There is no demonstrated abnormality of the visualized soft tissue structures of the upper abdomen. RAD/Chest 1 View (Portable) IMPRESSION: Right-sided chest tube placed in the interval with tip overlying the right upper lobe apex. There remains a moderate right pneumothorax, stable in the interval. A right-sided MediPort is again seen with tip in the region of the atriocaval junction. A stable small right-sided pleural effusion is present. Electronically Signed: Kiran Welsh MD at 16:41 EDT , Service support ,
[2017-12-01 16:10] VITALS: BP 153/80; PULSE 97; RESP 16; TEMP 37.2; O2SAT 98
[2017-12-01 22:00] VITALS: BP 138/78; PULSE 84; RESP 19; TEMP 36.9; O2SAT 98
[2017-12-02] VITALS (7 sets, daily range): BP systolic 109–146; BP diastolic 65–82; PULSE 65–104; RESP 16–19; TEMP 36.4–37.1; O2SAT 93–97
[2017-12-02] MEDS: oxyCODONE 5 MG Tablet PO ×4 (05:47→22:19)
[2017-12-02] MEDS: 0.9% NaCl VAD Flush 10 ML IV ×3 (05:50→22:20)
[2017-12-02] MEDS: Cefazolin 1 GM/50 ML BAG IV ×3 (05:50→22:20)
--- NOTE | 2017-12-02 07:23 | RAD_ITS ---
STUDY: X-RAY CHEST REASON FOR EXAM: Female, 52 years old. Chest tube placement. TECHNIQUE: Single AP portable view of the chest. COMPARISON: Very numerous previous exams including most recent chest x-ray of yesterday at 3:18 PM. FINDINGS: Stable appearance of right chest tube terminating in the apex. Stable appearance of the right pneumothorax considered moderate in size. Stable atelectasis in the right lung. Stable small right pleural effusion. Left lung shows some mild atelectasis in the left lung base and is otherwise clear. RAD/Chest 1 View (Portable) IMPRESSION: No change since yesterday's study. Continued right pneumothorax. Electronically Signed: Wilmer Moser MD at 8:47 EDT , Service support ,
--- NOTE | 2017-12-02 07:55 | PCM.CONS.GEN ---
Reason for Consult Date of Consultation: 12/02/17 Reason for Consultation: Iatrogenic pneumothorax with concern for bronchopleural fistula History of Present Illness: The patient is a 52-year-old female, with a history as outlined below, who presented to the hospital on November 30 as a direct admission from the office of Dr. Hernandez over concern for an enlarging iatrogenic pneumothorax and associated pleural effusion. The patient currently follows with Dr. Bell on an outpatient basis. The patient does have a prior smoking history and was recently diagnosed with metastatic adenocarcinoma of unknown primary, which initially presented as pathologically confirmed malignant right-sided pleural effusion. Subsequent abdominal imaging revealed the presence of a pancreatic mass with elevated CA-19-9 tumor marker. However, CT-guided biopsies were negative for the presence of malignancy. Despite this, there is still concern for a pancreatic primary malignancy. The patient is currently being followed by Dr. Feliz. She was last seen in the oncology office on November 30. She was started on palliative chemotherapy with gemcitabine and Abraxane on 11/26. Aside from the patient's initial diagnostic thoracentesis completed in September 2017, she recently underwent a therapeutic thoracentesis on November 27 due to the presence of the reaccumulating malignant effusion. At that time, 1.5 L of bloody fluid was drained. The procedure was complicated by the development of a 50% right-sided pneumothorax. Despite the size of the pneumothorax, the patient was managed conservatively. However, she later presented to the emergency department on November 29 with right-sided chest pain and shortness of breath. The patient's pneumothorax persisted on plain film chest imaging. Therefore, the emergency department provider placed a small bore chest tube. The patient was subsequently discharged home with a Heimlich valve in place with instructions to follow-up with surgery. A noncontrasted chest CT was completed on December 01 which revealed the presence of a continued moderate to large right pneumothorax. The left lung demonstrated the presence of metastatic disease. On December 01, the decision was made to remove the patient's 7 Liberian small bore chest tube and upsized to a 20 Liberian large bore chest tube. Despite this, the pneumothorax remains along with significant 3 chamber air leak. Past Medical History Past Medical History (Chronic Problems): Chronic Problems (Last Reviewed 11/30/17 @ 15:13 by Quiana Piper) Hypertension (Chronic) Tobacco abuse (Chronic) Allergies codeine Adverse Reaction (Severe, Verified 11/30/17 15:14) Itching Home Medications: Ambulatory Orders Medication Instructions Recorded Alprazolam [Xanax] 1 mg PO QHS PRN 10/12/17 Losartan Potassium 50 mg PO BID 10/12/17 Acetaminophen [Tylenol Tablet] 500 mg PO Q4H PRN tab 10/13/17 Hydrocodone/Acetaminophen 1 ea PO Q6H PRN #12 tab 10/13/17 [Hydrocodon-Acetaminophen 5-325] Surgical History: arthroscopy, knee, - - tubal ligation, appendectomy, R nephrectomy in her 20's. 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 Denies: Chills, Fever Eyes: Denies: Blurred vision, Double vision HEENT: Denies: Head Aches, Sinus Congestion, Sinus Drainage Cardiovascular: Reports: Chest Tightness, Heaviness Respiratory: Reports: Cough, Shortness of Breath Gastrointestinal: Denies: Abdominal Pain, Nausea, Vomiting Genitourinary: Denies: Dysuria Musculoskeletal: Reports: Back Pain. Denies: Joint Pain, Joint Tenderness Skin: Denies: Rash, Wounds Neurological: Denies: Numbness, Tingling, Focal weakness Psychiatric: Denies: Anxiety, Depression, Homicidal Ideations, Suicidal Ideations Hematologic/ Lymphatic: Denies: Easy Bruising, Easy Bleeding Patient Problems: Active and Suspected Problems (Last Reviewed 11/30/17 @ 15:13 by Quiana Piper) Pneumothorax of right lung after biopsy (Acute) Pneumothorax (Acute) Rash (Acute) Urticaria (Acute) Objective: The patient's most recent lab work, culture data and imaging studies have all been personally reviewed. - Physical Exam General: Alert, Cooperative, No apparent distress, - - Sitting in bedside recliner HEENT: Atraumatic, PERRLA, Normocephalic Oral: Moist Mucosa, No Gingival or Mucosal Lesions/ Ulcerations Neck: Supple, No Nodes, Trachea Midline Lungs: Diminished, Wheezes, - - Right-sided large bore chest tube in place Cardiovascular: Regular rate, Regular Rhythm, Normal S1, Normal S2, No murmurs, - - Chest wall port in place Abdomen: Bowel Sounds Present, Soft, Non Tender, Non-Distended Extremities: No clubbing, No cyanosis, No edema Skin: No rashes, No breakdown Musculoskeletal: No Tenderness to Palpation of Joints or Extremities Lymphatic: No Cervical, Supraclavicular, or Inguinal Adenopathy Neurological: Neuro grossly intact Psych/Mental Status: Normal Affect, Appropriate Vital Signs Temp Pulse Resp BP Pulse Ox 97.5 F L 65 18 131/72 H 97 12/02/17 06:05 12/02/17 06:05 12/02/17 06:05 12/02/17 06:05 12/02/17 06:05 Oxygen Delivery Method Room Air Weight: 117 lb 4.575 oz Body Mass Index (BMI) 22.1 Intake and Output for Last 24 Hours 11/30/17 12/01/17 12/02/17 23:59 23:59 23:59 Intake Total 794 / 794 457 / 457 400 / 400 Output Total 225 / 225 140 / 140 850 / 850 Balance 569 / 569 317 / 317 -450 / -450 Labs (Last 48 Hours) 11/30/17 11/30/17 12/01/17 16:52 16:52 05:45 WBC 5.6 4.0 L RBC 3.50 L 3.26 L Hgb 10.8 L 10.6 L Hct 33.6 L 31.8 L MCV 96.0 97.5 MCH 30.9 32.5 H MCHC 32.1 33.3 RDW 12.2 11.6 RDW Differential 42.7 40.2 Plt Count 241 223 MPV 9.7 9.6 Immature Gran % (Auto) 0.200 0.000 Neut % (Auto) 71.9 H 60.7 Lymph % (Auto) 24.9 33.5 Shoshone % (Auto) 0.5 1.8 Eos % (Auto) 1.8 3.5 Baso % (Auto) 0.7 0.5 Absolute Neuts (auto) 4.0 2.4 Absolute Lymphs (auto) 1.38 1.33 Total Counted Not Reportable Not Reportable Sodium 135 L Potassium 4.0 Chloride 103 Carbon Dioxide 25.0 Anion Gap 7 BUN 17 Creatinine 0.50 L Estim Creat Clear Calc 97.06 Est GFR (MDRD) Af Amer 164 Est GFR (MDRD) Non-Af 135 BUN/Creatinine Ratio 33.7 H Glucose 89 Calcium 8.6 12/01/17 05:45 WBC RBC Hgb Hct MCV MCH MCHC RDW RDW Differential Plt Count MPV Immature Gran % (Auto) Neut % (Auto) Lymph % (Auto) Shoshone % (Auto) Eos % (Auto) Baso % (Auto) Absolute Neuts (auto) Absolute Lymphs (auto) Total Counted Sodium 138 Potassium 4.2 Chloride 103 Carbon Dioxide 27.0 Anion Gap 8 BUN 13 Creatinine 0.60 Estim Creat Clear Calc 80.88 Est GFR (MDRD) Af Amer 133 Est GFR (MDRD) Non-Af 110 BUN/Creatinine Ratio 21.6 H Glucose 125 H Calcium 8.5 Clinical Impression(s) from Imaging Studies Chest X-Ray 11/30/17 13:42 IMPRESSION: No definite change in the moderate right pneumothorax. Increasing right pleural effusion and atelectasis or infiltrate in the lower right hemithorax. Electronically Signed: Wilmer Moser MD at 14:10 EDT , Service support , Chest X-Ray 11/30/17 17:32 IMPRESSION: Stable moderate right pneumothorax. There appears to be an interval increase in the degree of right basilar atelectasis. No other significant interval change is evident. Electronically Signed: Kiran Welsh MD at 18:00 EDT , Service support , Chest X-Ray 12/01/17 06:00 IMPRESSION: No significant change of small to moderate right pneumothorax with volume loss in the right base, probable adhesions of the visceral to parietal parietal and the right mid lung parenchyma, right chest tube and right port basement. Stable volume loss in the right hemithorax. Stable hyperinflation left lung. Electronically Signed: Mel Hyatt MD at 6:21 EDT , Service support , Chest CT 12/01/17 11:15 IMPRESSION: Persistent moderate large right hydropneumothorax and marked atelectasis of the right lung. Numerous nodules in the left lung suspicious for metastatic disease. Electronically Signed: Wilmer Moser MD at 12:26 EDT , Service support , Chest X-Ray 12/01/17 16:05 IMPRESSION: Right-sided chest tube placed in the interval with tip overlying the right upper lobe apex. There remains a moderate right pneumothorax, stable in the interval. A right-sided MediPort is again seen with tip in the region of the atriocaval junction. A stable small right-sided pleural effusion is present. Electronically Signed: Kiran Welsh MD at 16:41 EDT , Service support , Assessment/Plan Active and Suspected Problems (Last Reviewed 11/30/17 @ 15:13 by Quiana Piper) Pneumothorax of right lung after biopsy (Acute) Pneumothorax (Acute) Rash (Acute) Urticaria (Acute) RECOMMENDATIONS: 1. Recommend continuing chest tube to wall suction for now. 2. If the patient's pneumothorax remains unchanged tomorrow, would need to consider transfer to a tertiary care facility with interventional pulmonary capabilities. 3. Obtain repeat plain film chest x-ray in the morning IMPRESSIONS: 1. Large iatrogenic pneumothorax/malignant pleural effusion status post tube thoracotomy The patient sustained a large pneumothorax as a consequence of a thoracentesis completed on November 27. A small bore chest tube was initially in place without significant resolution of the aforementioned findings. Therefore, the chest tube was upsized to a 20 Liberian on December 01. Despite upsizing, the patient continues to have a significant air leak without any interval change in the size of the pneumothorax. In the setting of malignancy and recent invasive procedure, there is certainly concerned for the potential of a bronchopleural fistula. Recommend continuing the patient on wall suction for an additional 24 hours. Repeat plain film chest x-ray in the morning. If unchanged, would recommend consideration for transfer to the [facility] for evaluation by interventional pulmonary as the patient may require a bronchoscopy procedure with balloon occlusion of bronchial segments to localize the fistula and intervene upon it. This note was generated with [employer] software. It may contain incorrect words, spelling, and punctuation that were not noted in checking the note before signing. Code Visit Inpatient E&M: 08964 Init Hosp L3
--- NOTE | 2017-12-02 08:11 | CON.PCM_ITS ---
Reason for Consult Date of Consultation: 12/02/17 Reason for Consultation: Iatrogenic pneumothorax with concern for bronchopleural fistula History of Present Illness: The patient is a 52-year-old female, with a history as outlined below, who presented to the hospital on November 30 as a direct admission from the office of Dr. Hernandez over concern for an enlarging iatrogenic pneumothorax and associated pleural effusion. The patient currently follows with Dr. Bell on an outpatient basis. The patient does have a prior smoking history and was recently diagnosed with metastatic adenocarcinoma of unknown primary, which initially presented as pathologically confirmed malignant right-sided pleural effusion. Subsequent abdominal imaging revealed the presence of a pancreatic mass with elevated CA-19-9 tumor marker. However, CT-guided biopsies were negative for the presence of malignancy. Despite this, there is still concern for a pancreatic primary malignancy. The patient is currently being followed by Dr. Feliz. She was last seen in the oncology office on November 30. She was started on palliative chemotherapy with gemcitabine and Abraxane on 11/26. Aside from the patient's initial diagnostic thoracentesis completed in September 2017, she recently underwent a therapeutic thoracentesis on November 27 due to the presence of the reaccumulating malignant effusion. At that time, 1.5 L of bloody fluid was drained. The procedure was complicated by the development of a 50% right-sided pneumothorax. Despite the size of the pneumothorax, the patient was managed conservatively. However, she later presented to the emergency department on November 29 with right-sided chest pain and shortness of breath. The patient's pneumothorax persisted on plain film chest imaging. Therefore, the emergency department provider placed a small bore chest tube. The patient was subsequently discharged home with a Heimlich valve in place with instructions to follow-up with surgery. A noncontrasted chest CT was completed on December 01 which revealed the presence of a continued moderate to large right pneumothorax. The left lung demonstrated the presence of metastatic disease. On December 01, the decision was made to remove the patient's 7 Montserratian small bore chest tube and upsized to a 20 Montserratian large bore chest tube. Despite this, the pneumothorax remains along with significant 3 chamber air leak. Past Medical History Past Medical History (Chronic Problems): Chronic Problems (Last Reviewed 11/30/17 @ 15:13 by Quiana Piper) Hypertension (Chronic) Tobacco abuse (Chronic) Allergies codeine Adverse Reaction (Severe, Verified 11/30/17 15:14) Itching Home Medications: Ambulatory Orders Medication Instructions Recorded Alprazolam [Xanax] 1 mg PO QHS PRN 10/12/17 Losartan Potassium 50 mg PO BID 10/12/17 Acetaminophen [Tylenol Tablet] 500 mg PO Q4H PRN tab 10/13/17 Hydrocodone/Acetaminophen 1 ea PO Q6H PRN #12 tab 10/13/17 [Hydrocodon-Acetaminophen 5-325] Surgical History: arthroscopy, knee, - - tubal ligation, appendectomy, R nephrectomy in her 20's. 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 Denies: Chills, Fever Eyes: Denies: Blurred vision, Double vision HEENT: Denies: Head Aches, Sinus Congestion, Sinus Drainage Cardiovascular: Reports: Chest Tightness, Heaviness Respiratory: Reports: Cough, Shortness of Breath Gastrointestinal: Denies: Abdominal Pain, Nausea, Vomiting Genitourinary: Denies: Dysuria Musculoskeletal: Reports: Back Pain. Denies: Joint Pain, Joint Tenderness Skin: Denies: Rash, Wounds Neurological: Denies: Numbness, Tingling, Focal weakness Psychiatric: Denies: Anxiety, Depression, Homicidal Ideations, Suicidal Ideations Hematologic/ Lymphatic: Denies: Easy Bruising, Easy Bleeding Patient Problems: Active and Suspected Problems (Last Reviewed 11/30/17 @ 15:13 by Quiana Piper) Pneumothorax of right lung after biopsy (Acute) Pneumothorax (Acute) Rash (Acute) Urticaria (Acute) Objective: The patient's most recent lab work, culture data and imaging studies have all been personally reviewed. - Physical Exam General: Alert, Cooperative, No apparent distress, - - Sitting in bedside recliner HEENT: Atraumatic, PERRLA, Normocephalic Oral: Moist Mucosa, No Gingival or Mucosal Lesions/ Ulcerations Neck: Supple, No Nodes, Trachea Midline Lungs: Diminished, Wheezes, - - Right-sided large bore chest tube in place Cardiovascular: Regular rate, Regular Rhythm, Normal S1, Normal S2, No murmurs, - - Chest wall port in place Abdomen: Bowel Sounds Present, Soft, Non Tender, Non-Distended Extremities: No clubbing, No cyanosis, No edema Skin: No rashes, No breakdown Musculoskeletal: No Tenderness to Palpation of Joints or Extremities Lymphatic: No Cervical, Supraclavicular, or Inguinal Adenopathy Neurological: Neuro grossly intact Psych/Mental Status: Normal Affect, Appropriate Vital Signs Temp Pulse Resp BP Pulse Ox 97.5 F L 65 18 131/72 H 97 12/02/17 06:05 12/02/17 06:05 12/02/17 06:05 12/02/17 06:05 12/02/17 06:05 Oxygen Delivery Method Room Air Weight: 117 lb 4.575 oz Body Mass Index (BMI) 22.1 Intake and Output for Last 24 Hours 11/30/17 12/01/17 12/02/17 23:59 23:59 23:59 Intake Total 794 / 794 457 / 457 400 / 400 Output Total 225 / 225 140 / 140 850 / 850 Balance 569 / 569 317 / 317 -450 / -450 Labs (Last 48 Hours) 11/30/17 11/30/17 12/01/17 16:52 16:52 05:45 WBC 5.6 4.0 L RBC 3.50 L 3.26 L Hgb 10.8 L 10.6 L Hct 33.6 L 31.8 L MCV 96.0 97.5 MCH 30.9 32.5 H MCHC 32.1 33.3 RDW 12.2 11.6 RDW Differential 42.7 40.2 Plt Count 241 223 MPV 9.7 9.6 Immature Gran % (Auto) 0.200 0.000 Neut % (Auto) 71.9 H 60.7 Lymph % (Auto) 24.9 33.5 [place] % (Auto) 0.5 1.8 Eos % (Auto) 1.8 3.5 Baso % (Auto) 0.7 0.5 Absolute Neuts (auto) 4.0 2.4 Absolute Lymphs (auto) 1.38 1.33 Total Counted Not Reportable Not Reportable Sodium 135 L Potassium 4.0 Chloride 103 Carbon Dioxide 25.0 Anion Gap 7 BUN 17 Creatinine 0.50 L Estim Creat Clear Calc 97.06 Est GFR (MDRD) Af Amer 164 Est GFR (MDRD) Non-Af 135 BUN/Creatinine Ratio 33.7 H Glucose 89 Calcium 8.6 12/01/17 05:45 WBC RBC Hgb Hct MCV MCH MCHC RDW RDW Differential Plt Count MPV Immature Gran % (Auto) Neut % (Auto) Lymph % (Auto) [place] % (Auto) Eos % (Auto) Baso % (Auto) Absolute Neuts (auto) Absolute Lymphs (auto) Total Counted Sodium 138 Potassium 4.2 Chloride 103 Carbon Dioxide 27.0 Anion Gap 8 BUN 13 Creatinine 0.60 Estim Creat Clear Calc 80.88 Est GFR (MDRD) Af Amer 133 Est GFR (MDRD) Non-Af 110 BUN/Creatinine Ratio 21.6 H Glucose 125 H Calcium 8.5 Clinical Impression(s) from Imaging Studies Chest X-Ray 11/30/17 13:42 IMPRESSION: No definite change in the moderate right pneumothorax. Increasing right pleural effusion and atelectasis or infiltrate in the lower right hemithorax. Electronically Signed: Wilmer Moser MD at 14:10 EDT , Service support , Chest X-Ray 11/30/17 17:32 IMPRESSION: Stable moderate right pneumothorax. There appears to be an interval increase in the degree of right basilar atelectasis. No other significant interval change is evident. Electronically Signed: Kiran Welsh MD at 18:00 EDT , Service support , Chest X-Ray 12/01/17 06:00 IMPRESSION: No significant change of small to moderate right pneumothorax with volume loss in the right base, probable adhesions of the visceral to parietal parietal and the right mid lung parenchyma, right chest tube and right port basement. Stable volume loss in the right hemithorax. Stable hyperinflation left lung. Electronically Signed: Mel Hyatt MD at 6:21 EDT , Service support , Chest CT 12/01/17 11:15 IMPRESSION: Persistent moderate large right hydropneumothorax and marked atelectasis of the right lung. Numerous nodules in the left lung suspicious for metastatic disease. Electronically Signed: Wilmer Moser MD at 12:26 EDT , Service support , Chest X-Ray 12/01/17 16:05 IMPRESSION: Right-sided chest tube placed in the interval with tip overlying the right upper lobe apex. There remains a moderate right pneumothorax, stable in the interval. A right-sided MediPort is again seen with tip in the region of the atriocaval junction. A stable small right-sided pleural effusion is present. Electronically Signed: Kiran Welsh MD at 16:41 EDT , Service support , Assessment/Plan Active and Suspected Problems (Last Reviewed 11/30/17 @ 15:13 by Quiana Piper) Pneumothorax of right lung after biopsy (Acute) Pneumothorax (Acute) Rash (Acute) Urticaria (Acute) RECOMMENDATIONS: 1. Recommend continuing chest tube to wall suction for now. 2. If the patient's pneumothorax remains unchanged tomorrow, would need to consider transfer to a tertiary care facility with interventional pulmonary capabilities. 3. Obtain repeat plain film chest x-ray in the morning IMPRESSIONS: 1. Large iatrogenic pneumothorax/malignant pleural effusion status post tube thoracotomy The patient sustained a large pneumothorax as a consequence of a thoracentesis completed on November 27. A small bore chest tube was initially in place without significant resolution of the aforementioned findings. Therefore, the chest tube was upsized to a 20 Montserratian on December 01. Despite upsizing, the patient continues to have a significant air leak without any interval change in the size of the pneumothorax. In the setting of malignancy and recent invasive procedure, there is certainly concerned for the potential of a bronchopleural fistula. Recommend continuing the patient on wall suction for an additional 24 hours. Repeat plain film chest x-ray in the morning. If unchanged, would recommend consideration for transfer to the [facility] for evaluation by interventional pulmonary as the patient may require a bronchoscopy procedure with balloon occlusion of bronchial segments to localize the fistula and intervene upon it. This note was generated with [employer] software. It may contain incorrect words, spelling, and punctuation that were not noted in checking the note before signing. Code Visit Inpatient E&M: 92549 Init Hosp L3
--- NOTE | 2017-12-02 08:58 | PN.SURG_ITS ---
Patient Problems: Active and Suspected Problems (Last Reviewed 11/30/17 @ 15:13 by Quiana Piper) Pneumothorax of right lung after biopsy (Acute) Pneumothorax (Acute) Rash (Acute) Urticaria (Acute) Subjective: Patient evaluated resting comfortably in bed. She denies shortness of breath. She notes left lower back pain. Minimal discomfort at chest tube site. CXR this morning shows continued leak and no change in pneumothorax. Chest tube continues to demonstrate a leak. - Physical Exam General: Alert, Oriented x3, Cooperative Lungs: Diminished - Right upper and lower. Mid right lung with some air movment. , Wheezes - Left lung base Vital Signs Temp Pulse Resp BP Pulse Ox 97.5 F L 65 18 131/72 H 97 12/02/17 06:05 12/02/17 06:05 12/02/17 06:05 12/02/17 06:05 12/02/17 06:05 Oxygen Delivery Method Room Air Weight: 117 lb 4.575 oz Body Mass Index (BMI) 22.1 Intake and Output for Last 24 Hours 11/30/17 12/01/17 12/02/17 23:59 23:59 23:59 Intake Total 794 / 794 457 / 457 400 / 400 Output Total 225 / 225 140 / 140 1200 / 1200 Balance 569 / 569 317 / 317 -800 / -800 Assessment/Plan Active and Suspected Problems (Last Reviewed 11/30/17 @ 15:13 by Quiana Piper) Pneumothorax of right lung after biopsy (Acute) Pneumothorax (Acute) Rash (Acute) Urticaria (Acute) I am following this patient in conjunction with Dr. Hernandez Traumatic pneumothorax. Chest tube intact with continued air leak Chest tube was exchanged yesterday by Dr. Hernandez Consult Dr. Stewart. Appreciate his recommendations We will continue to monitor this patient
[2017-12-02] MEDS: Losartan Potassium 50 MG Tablet PO ×2 (10:42→22:20)
[2017-12-02] MEDS: Magnesium Hydroxide 30 ML UDC PO (16:51)
[2017-12-03] VITALS (7 sets, daily range): BP systolic 106–142; BP diastolic 69–87; PULSE 61–120; RESP 16–20; TEMP 36.6–36.9; O2SAT 91–95
--- NOTE | 2017-12-03 01:21 | NURSING ---
responded to pt call light. pt had 500cc green bile emesis. pt reports still feeling nauseous but refused Zofran. Also offered pt saltine crackers and or spirte, pt refused as well. pt resting in bed denied any needs. encouraged pt to call this nurse if nausea continued.
--- NOTE | 2017-12-03 05:01 | RAD_ITS ---
STUDY: X-RAY CHEST REASON FOR EXAM: Female, 52 years old. Right-sided pneumothorax. TECHNIQUE: Single AP portable view of the chest. COMPARISON: 12/02/2017. FINDINGS: There is a chest tube with its tip overlying the right lung apex. There is a right internal jugular Port-A-Cath with its tip in SVC-right atrial junction. There is a small to moderate-sized pneumothorax, overlying the periphery of the right mid and lower lung torres. There is also small right pleural effusion. These findings are not significantly different from the previous study. There is interstitial prominence in the left lung and there is mild left basilar atelectasis, not significantly changed. There is no demonstrated left pleural effusion. Normal size heart. Normal mediastinum and norma. Normal visualized pulmonary arteries. Normal visualized aortic arch and descending thoracic aorta. Normal visualized thoracic spine. Normal visualized ribs, clavicles, and shoulders. There is no demonstrated abnormality of the visualized soft tissue structures of the upper abdomen. RAD/Chest 1 View (Portable) IMPRESSION: Tubes are in stable position. Right pneumothorax and small right pleural effusion, not significantly changed. Mild chronic changes left lung field. Electronically Signed: Campbell Lanier MD at 6:34 EDT , Service support ,
[2017-12-03] MEDS: 0.9% NaCl VAD Flush 10 ML IV (06:19)
[2017-12-03] MEDS: Cefazolin 1 GM/50 ML BAG IV ×3 (06:19→21:24)
[2017-12-03] MEDS: oxyCODONE 5 MG Tablet PO ×3 (06:24→19:43)
[2017-12-03] MEDS: Ondansetron 4 MG/2 ML Vial IV ×2 (06:50→13:23)
--- NOTE | 2017-12-03 07:36 | PN.SURG_ITS ---
Patient Problems: Active and Suspected Problems (Last Reviewed 11/30/17 @ 15:13 by Quiana Piper) Pneumothorax of right lung after biopsy (Acute) Pneumothorax (Acute) Rash (Acute) Urticaria (Acute) Subjective: Patient evaluated resting comfortably in bed. She noted nausea and vomiting over night. She noted waiting for pain medication for some time over night and thinks may pain caught up to her causing nausea. She also noted her bowels have not moved since Thursday. She was given milk of magnesia overnight which she feels may have caused the nausea also. She denies nausea this morning. She denies shortness of breath. She is anxious that she may be transferred. CXR this morning appears to look improved. Pneumothorax still present however smaller. Air leak seems to be less. - Physical Exam General: Alert, Oriented x3, Cooperative Lungs: Diminished - Improved air movment of the right lung. Diminished in the apex and right lower base. Normal air movement of the left lung. Chest tube intact. Minimal amount of drainage on the dressing. 140 cc of fluid overnight within the canister., Wheezes - bilaterally Vital Signs Temp Pulse Resp BP Pulse Ox 97.8 F 115 H 20 H 142/84 H 91 12/03/17 06:26 12/03/17 06:26 12/03/17 06:26 12/03/17 06:26 12/03/17 06:26 Oxygen Delivery Method Room Air Weight: 117 lb 4.575 oz Body Mass Index (BMI) 22.1 Intake and Output for Last 24 Hours 12/01/17 12/02/17 12/03/17 23:59 23:59 23:59 Intake Total 457 / 457 1060 / 1060 730 / 730 Output Total 140 / 140 1350 / 1350 640 / 640 Balance 317 / 317 -290 / -290 90 / 90 Assessment/Plan Active and Suspected Problems (Last Reviewed 11/30/17 @ 15:13 by Quiana Piper) Pneumothorax of right lung after biopsy (Acute) Pneumothorax (Acute) Rash (Acute) Urticaria (Acute) I am following this patient in conjunction with Dr. Hernandez Traumatic pneumothorax. Chest tube intact with improved but continued air leak Will discuss patient with Dr. Hernandez Possible transfer to [facility] today We will continue to monitor this patient
--- NOTE | 2017-12-03 08:04 | PCM.PROGNOTE ---
Patient Problems: Active and Suspected Problems (Last Reviewed 11/30/17 @ 15:13 by Quiana Piper) Pneumothorax of right lung after biopsy (Acute) Pneumothorax (Acute) Rash (Acute) Urticaria (Acute) Subjective: The patient was seen and examined at the bedside this morning. Events from the last 24 hours have been reviewed. The patient is currently afebrile, hemodynamically stable and maintaining appropriate oxygen saturations on room air. The patient is currently resting comfortably in bed without complaints of shortness of breath or chest pain. The patient's plain film chest x-ray was personally reviewed from this morning and revealed no significant change from previous chest imaging. The patient's air leak persists. Objective: The patient's most recent lab work, culture data and imaging studies have all been personally reviewed. - Physical Exam General: Alert, Oriented x3, Cooperative, No apparent distress HEENT: Atraumatic, PERRLA, Normocephalic Oral: Moist Mucosa, No Gingival or Mucosal Lesions/ Ulcerations Neck: Supple, No Nodes, Trachea Midline Lungs: Diminished, - - Left basilar rales. Right-sided large bore chest tube remains in place. Cardiovascular: Regular rate, Regular Rhythm, Normal S1, Normal S2, No murmurs, - - Chest wall port remains in place Abdomen: Bowel Sounds Present, Soft, Non Tender Extremities: No clubbing, No cyanosis, No edema Skin: No rashes, No breakdown Musculoskeletal: No Tenderness to Palpation of Joints or Extremities Lymphatic: No Cervical, Supraclavicular, or Inguinal Adenopathy Neurological: Neuro grossly intact Psych/Mental Status: Normal Affect, Appropriate Vital Signs Temp Pulse Resp BP Pulse Ox 97.8 F 115 H 20 H 142/84 H 91 12/03/17 06:26 12/03/17 06:26 12/03/17 06:26 12/03/17 06:26 12/03/17 06:26 Oxygen Delivery Method Room Air Weight: 117 lb 4.575 oz Body Mass Index (BMI) 22.1 Intake and Output for Last 24 Hours 12/01/17 12/02/17 12/03/17 23:59 23:59 23:59 Intake Total 457 / 457 1060 / 1060 730 / 730 Output Total 140 / 140 1350 / 1350 640 / 640 Balance 317 / 317 -290 / -290 90 / 90 Clinical Impression(s) from Imaging Studies Chest X-Ray 11/30/17 13:42 IMPRESSION: No definite change in the moderate right pneumothorax. Increasing right pleural effusion and atelectasis or infiltrate in the lower right hemithorax. Electronically Signed: Wilmer Moser MD at 14:10 EDT , Service support , Chest X-Ray 11/30/17 17:32 IMPRESSION: Stable moderate right pneumothorax. There appears to be an interval increase in the degree of right basilar atelectasis. No other significant interval change is evident. Electronically Signed: Kiran Welsh MD at 18:00 EDT , Service support , Chest X-Ray 12/01/17 06:00 IMPRESSION: No significant change of small to moderate right pneumothorax with volume loss in the right base, probable adhesions of the visceral to parietal parietal and the right mid lung parenchyma, right chest tube and right port basement. Stable volume loss in the right hemithorax. Stable hyperinflation left lung. Electronically Signed: Mel Hyatt MD at 6:21 EDT , Service support , Chest CT 12/01/17 11:15 IMPRESSION: Persistent moderate large right hydropneumothorax and marked atelectasis of the right lung. Numerous nodules in the left lung suspicious for metastatic disease. Electronically Signed: Wilmer Moser MD at 12:26 EDT , Service support , Chest X-Ray 12/01/17 16:05 IMPRESSION: Right-sided chest tube placed in the interval with tip overlying the right upper lobe apex. There remains a moderate right pneumothorax, stable in the interval. A right-sided MediPort is again seen with tip in the region of the atriocaval junction. A stable small right-sided pleural effusion is present. Electronically Signed: Kiran Welsh MD at 16:41 EDT , Service support , Chest X-Ray 12/02/17 07:23 IMPRESSION: No change since yesterday's study. Continued right pneumothorax. Electronically Signed: Wilmer Moser MD at 8:47 EDT , Service support , Chest X-Ray 12/03/17 05:01 IMPRESSION: Tubes are in stable position. Right pneumothorax and small right pleural effusion, not significantly changed. Mild chronic changes left lung field. Electronically Signed: Campbell Lanier MD at 6:34 EDT , Service support , Assessment/Plan Active and Suspected Problems (Last Reviewed 11/30/17 @ 15:13 by Quiana Piper) Pneumothorax of right lung after biopsy (Acute) Pneumothorax (Acute) Rash (Acute) Urticaria (Acute) RECOMMENDATIONS: 1. Recommend continuing chest tube to wall suction for now. 2. Given that the patient has a continued air leak and no significant change noted on her plain film chest imaging, recommend consideration for transfer to the [facility] for evaluation by interventional pulmonary. IMPRESSIONS: 1. Large iatrogenic pneumothorax/malignant pleural effusion status post tube thoracotomy The patient sustained a large pneumothorax as a consequence of a thoracentesis completed on November 27. A small bore chest tube was initially in place without significant resolution of the aforementioned findings. Therefore, the chest tube was upsized to a 20 Chinese on December 01. Despite upsizing, the patient continues to have an air leak without any interval change in the size of the pneumothorax. In the setting of malignancy and recent invasive procedure, there is certainly concern for the potential of a bronchopleural fistula. Recommend continuing the patient on wall suction. Repeat plain film chest x-ray from this morning continues to demonstrate no significant interval change in the size of the patient's pneumothorax. Therefore, would recommend consideration for transfer to the [facility] for evaluation by interventional pulmonology, due to the persistent air leak. These recommendations were conveyed to Dr. Hernandez. This note was generated with [employer] dictation software. It may contain incorrect words, spelling, and punctuation that were not noted in checking the note before signing. Code Visit Inpatient E&M: 37227 Subs Hosp L2
--- NOTE | 2017-12-03 09:56 | NURSING ---
demographics faxed to [facility] transfer center as Cathy MEDINA's request, aware pt will be transferred. Patient Registration Specialist informed to start transfer packet.
[2017-12-03] MEDS: Losartan Potassium 50 MG Tablet PO ×2 (10:14→21:24)
--- NOTE | 2017-12-03 10:59 | TREXTCAR_ITS ---
- Diet 11/30/17 16:08 Diet: Regular Diet Food consistency:: Regular Liquid Consistency:: Regular/Thin Type of Dietary Supplement:: Ensure Complete Is pt able to select menu?: Yes - Wound(s) Right chest Wound Type: Puncture - Chest tube 20 Micronesian attached to wall suction right posterior flank Wound Type: Puncture - Therapies Weight Bearing: Full weight bearing - Problem/Diagnosis (1) Pleural effusion, malignant Status: Acute Current Visit: No (2) Mass of pancreas Status: Acute Current Visit: No (3) Lung metastases Status: Acute Current Visit: No (4) Pneumothorax Status: Acute Current Visit: No - Allergies/Procedures Done in Hospital Allergies/Adverse Reactions: Allergies codeine Adverse Reaction (Severe, Verified 11/30/17 15:14) Itching Procedures: - - chest tube placement - Type of Care/Length of Stay Estimated LOS: Convalescent Care Less Than 30 days Type of Care Needed: Intermediate Rehab Potential: Fair Prognosis: Fair - Additional Orders/Day of Discharge Day of Discharge: 12/03/17 - Follow Up Care Primary Care Physician: Sherrie Jacob [Primary Care Provider] -
--- NOTE | 2017-12-03 11:02 | PCM.DC.SUM ---
Discharge Date and Diagnosis - Problem List Patient Problems: Active and Suspected Problems (Last Reviewed 11/30/17 @ 15:13 by Quiana Piper) Pneumothorax of right lung after biopsy (Acute) Pneumothorax (Acute) Rash (Acute) Urticaria (Acute) Date of Admission: 11/30/17 Date of Discharge: 12/03/17 - Primary Discharge Diagnosis Active and Suspected Problems (Last Reviewed 11/30/17 @ 15:13 by Quiana Piper) Pneumothorax of right lung after biopsy (Acute) Pneumothorax (Acute) Rash (Acute) Urticaria (Acute) - Secondary Discharge Diagnosis Chronic Problems (Last Reviewed 11/30/17 @ 15:13 by Quiana Piper) Hypertension (Chronic) Tobacco abuse (Chronic) Hospital Course and Treatment Imaging Results: 12/03/17 05:01 CXR [Chest 1 View (Portable)] [RAD] Urgent Operations: None Procedures: - - Exchange of chest tube Summary of Care Provided: The patient is a 52 year old F who was direct admitted for traumatic right pneumothorax. Patient continues to have a persistent pneumothorax. Patient has had numerous chest x-rays which have demonstrated a persistent moderate to large right pneumothorax. Chest CT was obtained on 12/01 demonstrating moderate to large hydropneumothorax of the right lung. Multiple left lung nodules noted, suspicious for metastasis. 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 Patient was observed over night and if no improvement of her CXR in the morning, it was recommended the patient be transferred to a tertiary facility for further treatment. Patient had a chest x-ray this morning demonstrating no change in pneumothorax. Chest tube and right chest port-a-cath in place. 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 Transfer to the [facility] was discussed with the patient. Patient is agreeable to transfer. Dr. Hernandez spoke with cardiothoracic service, who will be accepting the patient in transfer. Home Medications: Medications to take at Discharge Alprazolam [Xanax] 1 mg PO QHS PRN 10/12/17 Losartan Potassium 50 mg PO BID 10/12/17 Acetaminophen [Tylenol Tablet] 500 mg PO Q4H PRN tab 10/13/17 Hydrocodone/Acetaminophen [Hydrocodon-Acetaminophen 5-325] 1 ea PO Q6H PRN #12 tab 10/13/17 Primary Care Physician: Sherrie Jacob [Primary Care Provider] - Disposition: Acute care Hospital Patient Condition:: Stable Meaningful Use Info Meaningful Use Diagnoses (Choose all that apply): None applicable
--- NOTE | 2017-12-04 00:53 | NURSING ---
[facility] transfer center called to see if we still needed a bed for this pt and I advised them that we did. She will call and let us know status.
--- NOTE | 2017-12-04 02:58 | NURSING ---
Called [facility] transfer line to make sure that we would not lose our bed assignment for this pt since we need to obtain Dr. Hernandez's signature on the transfer document. I told them we would try to obtain the signature around 0600 or so and then pt would need transferred to their facility. They indicated they did not think this would be a problem. Pt will be going to [facility], [address], Bed 23.
[2017-12-04] MEDS: Ondansetron 4 MG/2 ML Vial IV (03:04)
[2017-12-04] MEDS: oxyCODONE 5 MG Tablet PO (03:04)
[2017-12-04] MEDS: 0.9% NaCl VAD Flush 10 ML IV (03:05)
[2017-12-04 03:09] VITALS: BP 127/64; PULSE 98; RESP 16; TEMP 36.4; O2SAT 95
--- NOTE | 2017-12-04 06:18 | NURSING ---
Signed Certificate of Transfer received from Dr. Ortega.
[2017-12-04] MEDS: Cefazolin 1 GM/50 ML BAG IV (06:23)
[2017-12-04 07:54] VITALS: BP 134/84; PULSE 101; RESP 20; TEMP 36.8; O2SAT 94
--- NOTE | 2017-12-04 07:58 | NURSING ---
ASsisted pt into ambulating into bathroom. Took CT off of suction. Pt states she feels she has to have a bowel movement. Denies need for pain medication at this time. Will be picked up in 30min to be taken to [facility].
[2017-12-04] MEDS: Losartan Potassium 50 MG Tablet PO (08:21)
--- NOTE | 2017-12-04 09:33 | NURSING ---
Gave Report to Joan DUGAN at [facility] at this time.
== END 2017-12-04 08:59 | disposition short-term general hospital (02) | DRG 200 ==
LOC: MS3 16:01
PROVIDERS: Physician Assistant; Admitting Provider Surgery; Family Provider Family Medicine; PCP Family Medicine; Visit Provider Surgery
DX: J95.811 Postprocedural pneumothorax (principal); C25.9 Malignant neoplasm of pancreas, unspecified; J91.0 Malignant pleural effusion; C78.02 Secondary malignant neoplasm of left lung; I10 Essential (primary) hypertension; F17.200 Nicotine dependence, unspecified, uncomplicated; Z79.899 Other long term (current) drug therapy
CPT/HCPCS: 71045; 71046; 71250; 80048; 85025; 97802; 99406; J7040; A4216; J2405

== ENCOUNTER 2017-12-26 22:49 | Emergency (ER) | payer OTHER, SELFPAY ==
[2017-12-26 22:50] VITALS: BP 107/73; PULSE 163; RESP 20; TEMP 38.2; O2SAT 95; BMI 20.9
--- NOTE | 2017-12-26 23:10 | EKG12_ITS ---
Test Reason : SOB Blood Pressure : / mmHG Vent. Rate : 136 BPM Atrial Rate : 136 BPM P-R Int : 140 ms QRS Dur : 094 ms QT Int : 276 ms P-R-T Axes : 059 055 070 degrees QTc Int : 415 ms Sinus tachycardia Septal infarct , age undetermined Abnormal ECG Confirmed by SANTHOSH MANUEL, EARL ([id number]), food expeditor SANJANA NICHOLSON ([id number]) on 12/29/2017 8:48:08 AM Referred By: Leon Bell Confirmed By:EARL TREVIZO MD
--- NOTE | 2017-12-26 23:13 | ED.DCSUM_ITS ---
- ER Visit Summary Date of Service: 12/26/17 Chief Complaint: Fever History of Present Illness: The patient is a 52 F patient history of stage IV pancreatic cancer presents with fever today. T-max 102 orally. Clear productive cough. No urine symptoms. No vomiting or diarrhea. Followed by (L[facility]ha). Patient started chemo a month ago, last chemo treatment 2 days ago. States after first chemo developed pneumothorax on the right, currently has chest tube on the right side for continued pleural drainage. Denies chest pains. Tobacco history. Denies any palpitations or any dyspnea. Physical Examination: General: Alert and oriented ?3, no acute distress HEENT: Normocephalic, atraumatic. Moist mucosa membranes Neck: supple, nontender. Cardiovascular: Regular tachycardic rate 138 and rhythm, no murmurs. Right- sided chest tube clean, dry, intact. Respiratory: Normal breath sounds, symmetric, no distress Abdomen: Soft, nontender, nondistended Extremities: Nontender, no edema, pulses intact ?4 Neuro: no focal neurological deficits. Test Results: WBC 9.1. Hemoglobin 9.8. Potassium 4. Creatinine 0.50. Blood culture ?2 pending. Urine culture pending. UA with leukocytes 25, negative nitrites, negative white blood cell counts. EKG sinus rate 136, no ST or T- wave changes. Chest x-ray 2 views, residual improve right pneumothorax, right pleural effusion. Emergency Department Course and Treatment: Patient initial heart rate triage 160s, heart was 130 of my evaluation EKG is sinus. Per family this is normal for the patient. She was given IV fluids. Neutropenic workup initiated. White count was 9.1. She did not receive Neulasta. Hemoglobin stable from previous. Urine and blood cultures pending. Patient no respiratory distress. Family present with patient states her heart rate is normal for the patient recently. She is asymptomatic. I did speak with covering oncologist, Dr. Del Toro , updated on patient's presentation and findings. He states patient can go home since this is what she wishes. He wishes give her prescription for Levaquin for 7 days case symptoms worsen or persist. She will call the office on Thursday for follow-up. She return if any worsening symptoms. All questions were answered. Treatment Plan: [] Disposition: [] Impression: 1. Fever 2. Chemotherapy 3. History of stage IV pancreatic cancer This note was generated with [employer] dictation software. It may contain incorrect words, spelling, and punctuation that were not noted in review of the chart prior to signing ED Disposition - Plan for ED Patient: Disposition: Home or Assisted Living Chief Complaint: Fever Diagnosis: Fever, Chemotherapy, Stage IV pancreatic cancer Instructions: ED Fever Unconf Cause, Understanding Chemotherapy Prescriptions: levoFLOXacin tablet [Levaquin tablet] 750 mg PO DAILY #7 tablet Referrals: Sherrie Jacob [Primary Care Provider] - Barbara Feliz MD [STAFF PHYSICIAN] - 2 Days Additional Instructions: Start medication if symptoms persist or worsens. Call office on Thursday. Return if any worsening symptoms.
--- NOTE | 2017-12-26 23:19 | NURSING ---
NO OLD EKG'S IN MUSE
--- NOTE | 2017-12-26 23:59 | RAD_ITS ---
STUDY: X-RAY CHEST REASON FOR EXAM: Female, 52 years old. Cough and fever TECHNIQUE: Single frontal view of the chest. COMPARISON: 12/24/2017 FINDINGS: Stable chest tube on the right. Right chest wall port. Interval improvement in right pneumothorax. Progressing right pleural fluid. There is no demonstrated pleural abnormality. Normal size heart. Normal mediastinum and norma. Normal visualized pulmonary arteries. Normal visualized aortic arch and descending thoracic aorta. Normal visualized thoracic spine. Normal visualized ribs, clavicles, and shoulders. There is no demonstrated abnormality of the visualized soft tissue structures of the upper abdomen. RAD/Chest PA and Lateral IMPRESSION: Interval improvement in right pneumothorax. Progressing right pleural fluid. Electronically Signed: Jasper Sinha MD at 1:41 EDT Tel , Service support ,
[2017-12-27 00:39] LABS: Absolute Lymphocyte Count 0.73 X10^3/ul (0.83-4.51); Absolute Neutrophil Count 8.2 X10^3/uL (2.0-7.7); Basophil# 0.01 X10^3/uL; Basophil% 0.1 % (0-1); Eosinophil# 0.05 X10^3/uL; Eosinophils% 0.6 % (0-5); Hematocrit 30.2 % (37-47); Hemoglobin 9.8 g/dl (12.0-15.0); Lymphocyte # 0.73 X10^3/ul (4.0); Lymphocyte % 8.1 % (19-41); Mean Corp Hgb Conc 32.5 g/gl (32-36); Mean Corpuscular Hgb 30.6 pg (27.0-32.0); Mean Corpuscular Volume 94.4 fL (81-99); Mean Platelet Vol. 9.6 fl (6.2-12.0); Monocyte# 0.11 X10^3/uL; Monocyte% 1.2 % (0-10); Neutrophil # 8.15 X10^3/uL (2.7-7.7); Neutrophil % 89.9 % (47-70); Platelet Count 247 K/mm3 (150-450); RBC Distribution Width CV 13.6 % (11.6-14.6); RBC Distribution Width SD 47.3 fl (35.1-43.9); White Blood Count 9.1 K/mm3 (4.4-11.0)
[2017-12-27 00:43] LABS: POSITIVE COUNT NO; POSITIVE DIFFERENTIAL NO; POSITIVE MORPHOLOGY NO
[2017-12-27 00:55] LABS: Anion Gap 8 (5-15); BUN 12 mg/dL (7-18); BUN/Creat Ratio 24.2 RATIO (10-20); Calcium,Total 8.2 mg/dL (8.5-10.1); Chloride 102 mmol/L (98-107); EST Glomerular Filtration Rate 138 mL/min (>60); Est Glom Filt Rate - Afr Amer 167 mL/min (>60); Estimated Creatinine Clearance 97.06 ml/min; Glucose 118 mg/dL (74-106); Sodium Level 136 mmol/L (136-145)
[2017-12-27 01:05] VITALS: BP 112/70; PULSE 140; RESP 20; O2SAT 95
[2017-12-27] MEDS: 0.9% Normal Saline 1,000 ML 1000 ML IV (01:07)
[2017-12-27] MEDS: oxyCODONE 5 MG Tablet PO (01:39)
[2017-12-27 01:56] LABS: Mucous, Urine 0 SEEN /hpf (<or=2+)
[2017-12-27 02:16] LABS: Color, Urine Amber (Yellow); Glucose, Dipstick Normal (Normal); Ketone-Dipstick 5 mg/dl (Negative); Leukocyte Esterase-Dipstick 25 /ul (Negative); Nitrite-Dipstick Negative (Negative); Occult Blood-Urine 150 /ul (Negative); Protein-Dipstick 30 mg/dl (Negative); Specific Gravity, Urine 1.015 (1.002-1.030); Urine Bilirubin Dipstick Negative (Negative); Urine Clarity Sl. Cloudy (Clear); Urine Urobilinogen 1 mg/dl (Normal)
[2017-12-27 02:27] LABS: Bacteria RARE /hpf (None Seen); Red Blood Cells-Urine 0-5 SEEN /hpf (0-5); Squamous Epithelial Cells - UA 0-5 SEEN /hpf (5-10); White Blood Cells 0-5 SEEN /hpf (0-5)
[2017-12-27 03:04] VITALS: BP 109/71; PULSE 130; RESP 18; O2SAT 93
[2017-12-27 03:45] VITALS: BP 101/64; PULSE 120; RESP 16; O2SAT 97
--- NOTE | 2017-12-27 03:45 | ED.RN ---
PT GIVEN WRITTEN AND VERBAL DISCHARGE INSTRUCTIONS AND HOME GOING PRESCRIPTIONS. PT VERBALIZES UNDERSTANDING. PT PORT DEACCESSED AND COVERED WITH 2X2 GAUZE AND PAPER TAPE. PT REFUSED WHEELCHAIR. AMBULATORY HOME WITH FAMILY.
== END 2017-12-27 03:48 | disposition home or self-care (01) ==
PROVIDERS: Emergency Provider Emergency Medicine; Family Provider Family Medicine; PCP Family Medicine
DX: R50.9 Fever, unspecified (principal); C25.9 Malignant neoplasm of pancreas, unspecified; I10 Essential (primary) hypertension; Z79.899 Other long term (current) drug therapy; Z72.0 Tobacco use
CPT/HCPCS: 71046; 80048; 81001; 85025; 87040; 87070; 87086; 87088; 87205; 93005; 96360; 96361; 99284; J7030; A4216